=== PATIENT | female | born 1935 | race Caucasian/White ===

== ENCOUNTER 2016-08-25 09:00 | Emergency (ER) | payer MEDICARE, OTHER ==
[2016-08-25 09:08] VITALS: O2SAT 99
[2016-08-25 09:09] VITALS: BMI 18.8
[2016-08-25] MEDS ORDERED: Sodium Chloride 0.9% 500 ML IV STA (09:26)
--- NOTE | 2016-08-25 09:37 | ED PDOC ---
HPI: Abdomen Time Seen by Provider: 08/25/16 09:12 Chief Complaint (Nursing): Abdominal Pain Chief Complaint (Provider): Abdominal Pain History Per: Patient History/Exam Limitations: no limitations Onset/Duration Of Symptoms: Days (x2) Current Symptoms Are (Timing): Still Present Associated Symptoms: Nausea, Diarrhea, Other (lightheaded, and dizziness) Additional Complaint(s): Jess Rose is a 81 year old female, with a past medical history of arthritis and chronic obstructive pulmonary disorder, who presents to the emergency department complaining of lower abdominal pain associated with non-bloody diarrhea, nausea, dizziness and light headedness onset for 2 days. She denies any headache, shortness of breath, chest pain, arm pains, numbness, tingling, back pain, urinary symptom or eating new foods. Patient did not take any medications prior to arrival and reports experiencing similar symptoms in the past. PMD: Rudi Gusman Past Medical History Reviewed: Historical Data, Nursing Documentation, Vital Signs Vital Signs: Last Vital Signs Temp 97.7 F 08/25/16 09:07 Pulse 77 08/25/16 09:07 Resp 16 08/25/16 09:07 BP 115/70 08/25/16 09:07 Pulse Ox 99 08/25/16 12:28 - Medical History PMH: Arthritis, Asthma, COPD Denies: Chronic Kidney Disease - Family History Family History: States: Unknown Family Hx - Social History Current smoker - smoking cessation education provided: No Alcohol: None Drugs: Denies - Home Medications Home Medications: Ambulatory Orders Medication Instructions Recorded Levothyroxine Sodium 0.075 mg PO DAILY 11/09/14 [Levothyroxine] Meclizine Hydrochloride [Meclizine] 12.5 mg PO BID 11/09/14 Montelukast [Singulair] 10 mg PO DAILY 11/09/14 Ciprofloxacin HCl [Cipro] 500 mg PO BID #14 tab 11/10/14 Metronidazole [Flagyl] 500 mg PO BID #14 tab 11/10/14 Ondansetron ODT [Zofran ODT] 4 mg PO Q8 PRN #12 odt 11/10/14 Oxycodone HCl/Acetaminophen 1 tab PO Q6 PRN #15 tab 11/10/14 [Percocet 325 mg-5 mg] Dicyclomine [Dicyclomine HCl] 10 mg PO DAILY PRN 5 Days 08/25/16 Nitrofurantoin Macrocrystals 100 mg PO BID #10 cap 08/25/16 [Macrobid] - Allergies Allergies/Adverse Reactions: Allergies Allergy/AdvReac Type Severity Reaction Status Date / Time No Known Allergies Allergy Verified 08/25/16 09:21 Review of Systems ROS Statement: Except As Marked, All Systems Reviewed And Found Negative Cardiovascular: Negative for: Chest Pain Respiratory: Negative for: Shortness of Breath Gastrointestinal: Positive for: Nausea, Abdominal Pain, Diarrhea (non-bloody). Negative for: Vomiting Genitourinary Female: Negative for: Dysuria, Frequency, Incontinence, Hematuria Musculoskeletal: Negative for: Arm Pain, Back Pain Neurological: Positive for: Dizziness. Negative for: Weakness, Numbness, Headache Physical Exam - Reviewed Nursing Documentation Reviewed: Yes Vital Signs Reviewed: Yes - Physical Exam Appears: Positive for: Non-toxic, No Acute Distress Head Exam: Positive for: ATRAUMATIC, NORMAL INSPECTION, NORMOCEPHALIC Skin: Positive for: Normal Color, Warm, Dry Eye Exam: Positive for: EOMI, Normal appearance, PERRL ENT: Positive for: Normal ENT Inspection Neck: Positive for: Normal, Painless ROM, Supple Cardiovascular/Chest: Positive for: Regular Rate, Rhythm Respiratory: Positive for: CNT, Normal Breath Sounds Gastrointestinal/Abdominal: Positive for: Bowel Sounds, Soft, Tenderness (mild tenderness in lower abdomen). Negative for: Normal Exam Back: Positive for: Normal Inspection. Negative for: L CVA Tenderness, R CVA Tenderness Extremity: Positive for: Normal ROM. 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 Negative for: Motor/Sensory Deficits, Facial Droop - Laboratory Results Result Diagrams: 08/25/16 10:01 08/25/16 10:01 Interpretation Of Abn Labs: 9.8 hg similar to old Urine dip results: Positive for: Leukocyte Esterase (trace) - ECG ECG: Positive for: Interpreted By Me, Viewed By Me ECG Rhythm: Positive for: Normal QRS, Normal ST Segment, Sinus Rhythm O2 Sat by Pulse Oximetry: 99 (RA) Pulse Ox Interpretation: Normal - Progress ED Course And Treament: 1238: Stable. AAOx3. Pain free. Tolerated PO. FU with pcp. Medical Decision Making Medical Decision Making: Initial Impression: Medical Evaluation Initial Plan: --EKG --Comp Metabolic Panel --Troponin I --Urine Dip --Labs --Antivert 25mg PO --NS IV 500 ml at 250mls/hr --Zofran Inj IV 4mg once --Reevaluation Scribe Attestation: Documented by Miguel Hernández, acting as a scribe for Rock Toledo MD. Provider Scribe Attestation: All medical record entries made by the Scribe were at my direction and personally dictated by me. I have reviewed the chart and agree that the record accurately reflects my personal performance of the history, physical exam, medical decision making, and the department course for this patient. I have also personally directed, reviewed, and agree with the discharge instructions and disposition. Disposition - Clinical Impression Clinical Impression: Dizziness, UTI (urinary tract infection), Diarrhea - Patient ED Disposition Is Patient to be Admitted: No Counseled Patient/Family Regarding: Studies Performed, Diagnosis, Need For Followup, Rx Given - Disposition Referrals: [facility] [Outside] - 08/26/16 Disposition: Routine/Home Disposition Time: 12:43 Condition: STABLE Additional Instructions: Return if not better in 3 days. Prescriptions: Dicyclomine [Dicyclomine HCl] 10 mg PO DAILY PRN 5 Days PRN Reason: Diarrhea Nitrofurantoin Macrocrystals [Macrobid] 100 mg PO BID #10 cap Instructions: Dizziness (ED), Urinary Tract Infection in Women (ED), Acute Diarrhea (ED)
[2016-08-25 10:06] LABS: BASO % 0.5 % (0.0-2.0); EOS # 0.2 K/uL (0.0-0.7); EOS % 3.5 % (0.0-4.0); HEMOGLOBIN 9.8 g/dL (12.0-16.0); LYMPH # 1.8 K/uL (1.0-4.3); LYMPH % 36.2 % (20.0-40.0); MEAN CELL VOLUME 93.7 fl (81.0-99.0); MEAN CORPUSCULAR HGB CONC 33.1 g/dL (33.0-37.0); MEAN PLATELET VOLUME 7.1 fl (7.2-11.7); MONO # 0.4 K/uL (0.0-0.8); MONO % 7.7 % (0.0-10.0); NEUT # 2.6 K/uL (1.8-7.0); NEUT % 52.1 % (50.0-75.0); NRBC % 0.2 % (0.0-0.0); RBC 3.17 Mil/uL (3.80-5.20); RED CELL DISTRIBUTION WIDTH 16.5 % (11.5-14.5)
[2016-08-25 10:45] LABS: ALB/GLOB RATIO 1.3 (1.0-2.1); ALBUMIN 4.3 g/dL (3.5-5.0); ALT/SGPT 42 U/L (9-52); AST/SGOT 34 U/L (14-36); BLOOD UREA NITROGEN 14 mg/dl (7-17); CALCIUM 9.3 mg/dL (8.4-10.2); GFR AFRICAN-AMERICAN > 60; GFR NON-AFRICAN AMERICAN > 60
[2016-08-25 11:03] LABS: SQUAMOUS EPITHIAL 5 /hpf (0-5); URINE BILIRUBIN NEGATIVE (NEGATIVE); URINE BLOOD NEGATIVE (NEGATIVE); URINE CLARITY SLIGHTY-CLOUDY (Clear); URINE COLOR YELLOW (YELLOW); URINE GLUCOSE (UA) NEG (Normal); URINE LEUKOCYTE ESTERASE TRACE Leu/uL (Negative); URINE NITRATE NEGATIVE (NEGATIVE); URINE PROTEIN NEGATIVE (NEGATIVE); URINE UROBILINOGEN 0.2-1.0 mg/dL (0.2-1.0)
[2016-08-25 13:20] VITALS: BP 117/69; PULSE 88; RESP 18; TEMP 98.9
--- NOTE | 2016-08-25 15:08 | CARD ---
APPROVED REPORT EKG Measurement Heart [id number] [id number] <Conclusion> Normal sinus rhythm Normal ECG
== END 2016-08-25 13:20 | disposition home or self-care (01) ==
LOC: H.ER 09:00
DX: N39.0 Urinary tract infection, site not specified (principal); J44.9 Chronic obstructive pulmonary disease, unspecified
CPT/HCPCS: 80053; 81003; 84484; 85025; 87086; 93005; 96361; 96374; 96375; 99285; J1885; J2405; J7040

== ENCOUNTER 2016-08-27 08:19 | Observation (INO) | payer MEDICARE, OTHER ==
--- NOTE | 2016-08-27 09:05 | ED PDOC ---
HPI: Abdomen Time Seen by Provider: 08/27/16 08:54 Chief Complaint (Nursing): Abdominal Pain Chief Complaint (Provider): Abdominal Pain History Per: Patient History/Exam Limitations: no limitations Onset/Duration Of Symptoms: Days (x3) Current Symptoms Are (Timing): Still Present Additional Complaint(s): Jess Rose is a 81 year old female with a history of asthma and diverticulitis that presents to the ED with a chief complaint of lower abdominal pain with associated diarrhea that she has been experiencing for the past three days. Patient was seen in the ED on 08/25 and was diagnosed with a UTI and given Rx for Macrobid. Patient has had no improvement in symptoms and continues to have diarrhea, but denies any vomiting, fever, or bloody stool. Past Medical History Reviewed: Historical Data, Nursing Documentation, Vital Signs Vital Signs: Last Vital Signs Temp 97 F L 08/27/16 08:40 Pulse 77 08/27/16 08:40 Resp 18 08/27/16 08:40 BP 106/70 08/27/16 08:40 Pulse Ox 97 08/27/16 11:52 - Medical History PMH: Arthritis, Asthma, COPD, Diverticulitis Denies: Chronic Kidney Disease - Family History Family History: States: Unknown Family Hx - Social History Current smoker - smoking cessation education provided: No Alcohol: None Drugs: Denies - Home Medications Home Medications: Ambulatory Orders Medication Instructions Recorded Levothyroxine Sodium 0.075 mg PO DAILY 11/09/14 [Levothyroxine] Meclizine Hydrochloride [Meclizine] 12.5 mg PO BID 11/09/14 Montelukast [Singulair] 10 mg PO DAILY 11/09/14 Ciprofloxacin HCl [Cipro] 500 mg PO BID #14 tab 11/10/14 Metronidazole [Flagyl] 500 mg PO BID #14 tab 11/10/14 Ondansetron ODT [Zofran ODT] 4 mg PO Q8 PRN #12 odt 11/10/14 Oxycodone HCl/Acetaminophen 1 tab PO Q6 PRN #15 tab 11/10/14 [Percocet 325 mg-5 mg] Dicyclomine [Dicyclomine HCl] 10 mg PO DAILY PRN 5 Days 08/25/16 Nitrofurantoin Macrocrystals 100 mg PO BID #10 cap 08/25/16 [Macrobid] - Allergies Allergies/Adverse Reactions: Allergies Allergy/AdvReac Type Severity Reaction Status Date / Time No Known Allergies Allergy Verified 08/27/16 08:40 Review of Systems Constitutional: Negative for: Fever Gastrointestinal: Positive for: Vomiting, Abdominal Pain (lower abdominal pain bilaterally). 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 Patient states hx of rash x10 years.) Cardiovascular/Chest: Positive for: Regular Rate, Rhythm. Negative for: Murmur Respiratory: Positive for: Normal Breath Sounds. Negative for: Wheezing Gastrointestinal/Abdominal: Positive for: Soft, Tenderness (TTP lower abdomen bilaterally. ). Negative for: Normal Exam Back: Positive for: Normal Inspection. Negative for: L CVA Tenderness, R CVA Tenderness Extremity: Positive for: Normal ROM. Negative for: Tenderness, Swelling Neurologic/Psych: Positive for: Alert, Oriented. Negative for: Motor/Sensory Deficits - Laboratory Results Result Diagrams: 08/27/16 09:00 08/27/16 09:00 - ECG O2 Sat by Pulse Oximetry: 97 (RA) Pulse Ox Interpretation: Normal Medical Decision Making Medical Decision Making: Impression: Abdominal Pain Plan: * CT A/P with IV Contrast * CMP * CBC * Urine Dip * Reevaluation 11:30 CT A/P with IV Contrast FINDINGS: Lung bases: There is dependent atelectasis in the lung bases. Liver/biliary: There is mild hepatomegaly and diffuse low-attenuation in the liver without focal lesion. There is no biliary ductal dilatation. There are small gallstones. Pancreas: Normal. Spleen:There is redemonstration of moderate splenomegaly. The spleen measures 20 cm in craniocaudad dimension. Inhomogeneous enhancement in the spleen is likely related to arterial phase of scanning. Adrenal glands: Normal. Kidneys/ureters/bladder: The kidneys are normal in appearance without hydronephrosis, stone or mass. The visualized opacified ureters are normal without dilatation or filling defect. The left kidney is displaced anteriorly and superiorly due to mass effect from enlarged spleen. The urinary bladder is normal. Gastrointestinal/mesentery: There are diverticula arising from the 2nd and 3rd portions of the duodenum. The small bowel loops are normal in caliber. There is fecalization in the distal small bowel contents. There is moderate amount of stool in the colon. There is mild sigmoid diverticulosis. There is apparent mild mural thickening in the proximal sigmoid colon with pericolonic inflammatory changes. No evidence of micro perforation or abscess. Retroperitoneum/lymph nodes: No abdominal aortic aneurysm or abdominal or pelvic lymphadenopathy. Pelvis: The uterus is surgically absent. Musculoskeletal/abdominal wall: There is multilevel degenerative disc disease in the lower lumbar spine. Other: No free fluid or free air. IMPRESSION: 1. Findings are most compatible with segmental acute diverticulitis involving the proximal sigmoid colon. No evidence of micro perforation or abscess. Follow-up after medical management is recommended to ensure complete resolution and exclude underlying mass. 2. Constipation and fecalization in the distal small bowel contents related to chronic stasis. 3. Persistent moderate splenomegaly. 4. Mild hepatomegaly and hepatic steatosis. 5. Cholelithiasis. Scribe Attestation: Documented by Martha Selby, acting as a scribe for Kevin Leon MD. Provider Scribe Attestation: All medical record entries made by the Scribe were at my direction and personally dictated by me. I have reviewed the chart and agree that the record accurately reflects my personal performance of the history, physical exam, medical decision making, and the department course for this patient. I have also personally directed, reviewed, and agree with the discharge instructions and disposition. Disposition - Clinical Impression Clinical Impression: Diverticulitis - Patient ED Disposition Is Patient to be Admitted: Yes - Disposition Disposition Time: 12:18 Condition: FAIR - Pt Status Changed To: Hospital Disposition Of: Observation - POA Present On Arrival: None
[2016-08-27 09:28] LABS: BASO % 0.4 % (0.0-2.0); EOS # 0.1 K/uL (0.0-0.7); EOS % 2.2 % (0.0-4.0); HEMOGLOBIN 9.4 g/dL (12.0-16.0); LYMPH # 1.6 K/uL (1.0-4.3); LYMPH % 34.3 % (20.0-40.0); MEAN CELL VOLUME 93.4 fl (81.0-99.0); MEAN CORPUSCULAR HEMOGLOBIN 30.7 pg (27.0-31.0); MEAN CORPUSCULAR HGB CONC 32.8 g/dL (33.0-37.0); MEAN PLATELET VOLUME 6.8 fl (7.2-11.7); MONO # 0.3 K/uL (0.0-0.8); MONO % 6.2 % (0.0-10.0); NEUT # 2.7 K/uL (1.8-7.0); NEUT % 56.9 % (50.0-75.0); NRBC % 0.2 % (0.0-0.0); RBC 3.08 Mil/uL (3.80-5.20); RED CELL DISTRIBUTION WIDTH 16.4 % (11.5-14.5); WHITE BLOOD COUNT 4.8 K/uL (4.8-10.8)
[2016-08-27 09:42] LABS: ALB/GLOB RATIO 1.2 (1.0-2.1); ALBUMIN 4.3 g/dL (3.5-5.0); ALT/SGPT 38 U/L (9-52); AST/SGOT 36 U/L (14-36); BLOOD UREA NITROGEN 16 mg/dl (7-17); CALCIUM 9.2 mg/dL (8.4-10.2); GFR AFRICAN-AMERICAN > 60; GFR NON-AFRICAN AMERICAN > 60
[2016-08-27] MEDS ORDERED: Sodium Chloride 0.9% 50 ML IV ONE (10:07)
[2016-08-27] MEDS ORDERED: Iodixanol 320 MG/ML 100 ML BOTTLE IV ONE (10:09)
--- NOTE | 2016-08-27 11:26 | CT ---
PROCEDURE: CT ABDOMEN AND PELVIS INDICATION: Abd pain, h/o diverticulitis TECHNIQUE: This CT exam was performed using one or more of the following dose reduction techniques: Automated exposure control, adjustment of the mA and/or kV according to patient size, and/or use of iterative reconstruction technique CT scan of the abdomen and pelvis was performed after intravenous administration of contrast. Oral contrast was not administered. Coronal and sagittal reformatted images were obtained. Contrast dose: 95 mL Visipaque 300 Radiation dose: Total exam DLP = 628.49 mGy-cm. COMPARISON: CT abdomen and pelvis from 11/09/2014 FINDINGS: Lung bases: There is dependent atelectasis in the lung bases. Liver/biliary: There is mild hepatomegaly and diffuse low-attenuation in the liver without focal lesion. There is no biliary ductal dilatation. There are small gallstones. Pancreas: Normal. Spleen:There is redemonstration of moderate splenomegaly. The spleen measures 20 cm in craniocaudad dimension. Inhomogeneous enhancement in the spleen is likely related to arterial phase of scanning. Adrenal glands: Normal. Kidneys/ureters/bladder: The kidneys are normal in appearance without hydronephrosis, stone or mass. The visualized opacified ureters are normal without dilatation or filling defect. The left kidney is displaced anteriorly and superiorly due to mass effect from enlarged spleen. The urinary bladder is normal. Gastrointestinal/mesentery: There are diverticula arising from the 2nd and 3rd portions of the duodenum. The small bowel loops are normal in caliber. There is fecalization in the distal small bowel contents. There is moderate amount of stool in the colon. There is mild sigmoid diverticulosis. There is apparent mild mural thickening in the proximal sigmoid colon with pericolonic inflammatory changes. No evidence of micro perforation or abscess. Retroperitoneum/lymph nodes: No abdominal aortic aneurysm or abdominal or pelvic lymphadenopathy. Pelvis: The uterus is surgically absent. Musculoskeletal/abdominal wall: There is multilevel degenerative disc disease in the lower lumbar spine. Other: No free fluid or free air. IMPRESSION: 1. Findings are most compatible with segmental acute diverticulitis involving the proximal sigmoid colon. No evidence of micro perforation or abscess. Follow-up after medical management is recommended to ensure complete resolution and exclude underlying mass. 2. Constipation and fecalization in the distal small bowel contents related to chronic stasis. 3. Persistent moderate splenomegaly. 4. Mild hepatomegaly and hepatic steatosis. 5. Cholelithiasis.
[2016-08-27] MEDS ORDERED: Ciprofloxacin 400mg/200ml D5W 400 MG/200 ML BAG IVPB STA (12:17)
[2016-08-27] MEDS ORDERED: metroNIDAZOLE 500mg/100ml NS 1,000 MG in Premixed IV 1 EA IVPB SCH (12:30)
[2016-08-27] MEDS ORDERED: Ciprofloxacin 400mg/200ml D5W 400 MG/200 ML BAG IVPB ONE (12:37)
[2016-08-27 12:59] LABS: VENOUS BLOOD GAS BASE EXCESS 3.5 mmol/L (0.0-2.0); VENOUS BLOOD GAS PCO2 40 mmHg (40-60); VENOUS BLOOD GAS PO2 52 mm/Hg (30-55); VENOUS BLOOD PH 7.45 (7.32-7.43)
--- NOTE | 2016-08-27 13:01 | CP.PCM.HP ---
History of Present Illness - History of Present Illness History of Present Illness: 81 y/o female with a PMHx of hypothyroidism presents with a 3 day hx of worsening lower abdominal pain. Pt was seen in ED earlier this week and given a course of Macrobid without improvement. Pain was originally located suprapubically and in the LLQ but has now become more diffuse. Pain is 8/10, intermittent, without radiation, alleviated with rest, and exacerbated with movement or anything at increases intraabdominal pressure. No other associated symptoms. Pt reports regular BM this morning and tolerated PO intake of breakfast w/o diffculty. No other complaints. Denies fever/chills, headaches, changes in vision, CP/SOB/Palpitations, change in appetite, weight loss, N/V/D/C , melena, hematochezia, urinary symptoms, numbness/tingling. PMD: Rudi Avila PMHx: Hypothyroidism, carpal tunnel, arthritis Meds: as per med rec PsurgHx: no hx of abdominal surgery, several joint procedures (knee, wrist,) w/ o complication ALL: NKDA Social: lives with family, denies ETOH, tobacco, drug abuse Familyhx: noncontributatory ED COURSE: Vitals on Presentation: 97.0, HR 71, BP 109/73, RR 18, POX 98% on RA Labs CBC: 4.8>9.4/28.7<103 CMP: WNL Imaging: Abd/pelvic CT w/contrast: segmental acute diverticulitis involving the sigmoid colon, no micorperf/abscess formation, moderate splenomegaly, mild hepatomegaly with steatosis, cholelithiasis case discussed with Dr. Monaco Present on Admission - Present on Admission Any Indicators Present on Admission: No Review of Systems - Review of Systems All systems: reviewed and no additional remarkable complaints except - Constitutional Constitutional: As Per HPI Past Patient History - Past Medical History & Family History Past Medical History?: Yes Past Family History: Reviewed and not pertinent - Past Social History Smoking Status: Never Smoked Alcohol: None Drugs: Denies Home Situation {Lives}: With Family Domestic Violence: Negative - CARDIAC Hx Cardiac Disorders: No - PULMONARY Hx Asthma: Yes Hx Chronic Obstructive Pulmonary Disease (COPD): Yes - NEUROLOGICAL Hx Dizziness: Yes - HEENT Hx HEENT Problems: No - RENAL Hx Chronic Kidney Disease: No - ENDOCRINE/METABOLIC Hx Endocrine Disorders: No - HEMATOLOGICAL/ONCOLOGICAL Hx Blood Disorders: No - INTEGUMENTARY Hx Dermatological Problems: No - MUSCULOSKELETAL/RHEUMATOLOGICAL Hx Arthritis: Yes - GASTROINTESTINAL Hx Diverticulitis: Yes - GENITOURINARY/GYNECOLOGICAL Hx Genitourinary Disorders: No - PSYCHIATRIC Hx Psychophysiologic Disorder: No Hx Substance Use: No - SURGICAL HISTORY Other/Comment: Knee surgery, BUE surgeries - ANESTHESIA Hx Anesthesia: Yes Hx Anesthesia Reactions: No Meds Allergies/Adverse Reactions: Allergies Allergy/AdvReac Type Severity Reaction Status Date / Time No Known Allergies Allergy Verified 08/27/16 08:40 Physical Exam - Constitutional Appears: Non-toxic, No Acute Distress - Head Exam Head Exam: ATRAUMATIC, NORMOCEPHALIC - Eye Exam Eye Exam: EOMI. absent: Conjunctival injection, Scleral icterus Pupil Exam: PERRL - ENT Exam ENT Exam: Mucous Membranes Moist - Neck Exam Neck exam: Positive for: Full Rom. Negative for: Tenderness, Thyromegaly - Respiratory Exam Respiratory Exam: Clear to Auscultation Bilateral, NORMAL BREATHING PATTERN. absent: Accessory Muscle Use, Rales, Rhonchi, Wheezes, Respiratory Distress - Cardiovascular Exam Cardiovascular Exam: REGULAR RHYTHM, RRR, +S1, +S2. absent: Tachycardia, Diastolic murmur, Gallop, JVD, Rubs, Systolic Murmur - GI/Abdominal Exam GI & Abdominal Exam: Guarding, Normal Bowel Sounds, Soft, Tenderness. absent: Distended, Firm, Rebound, Rigid Additional comments: voluntary guarding suprapubically in and LLQ - Extremities Exam Extremities exam: Positive for: normal inspection, pedal pulses present. Negative for: calf tenderness, pedal edema, tenderness - Back Exam Back exam: NORMAL INSPECTION. absent: CVA tenderness (L), CVA tenderness (R) - Neurological Exam Neurological exam: Alert, CN II-XII Intact, Normal Gait, Oriented x3, Reflexes Normal - Psychiatric Exam Psychiatric exam: Normal Affect, Normal Mood - Skin Skin Exam: Dry, Intact, Normal Color Results - Vital Signs Recent Vital Signs: Last Vital Signs Temp 97 F L 08/27/16 08:40 Pulse 77 08/27/16 08:40 Resp 18 08/27/16 08:40 BP 106/70 08/27/16 08:40 Pulse Ox 97 08/27/16 12:18 - Labs Result Diagrams: 08/27/16 09:00 08/27/16 09:00 Labs: Laboratory Results - last 24 hr 08/27/16 12:50 pO2 52 VBG pH 7.45 H VBG pCO2 40 VBG HCO3 27.4 VBG Total CO2 29.0 H VBG O2 Sat (Calc) 90.8 H VBG Base Excess 3.5 H VBG Potassium 4.4 Sodium 136.0 Chloride 106.0 Glucose 87 Lactate 0.8 FiO2 21.0 Venous Blood Potassium 4.4 Assessment & Plan (1) Acute diverticulitis Assessment and Plan: afebrile labs no elevated WBC NPO IV Ciproflox 400mg QD IV Flagyl 1gm QD IV Toradol 15mg PRN PAIN D5LR @ 100ms/hr mx fluid f/u AM labs, monitor vitals Status: Acute Priority: Medium (2) DVT prophylaxis Assessment and Plan: ambulation with caution SCDs PRN. Status: Acute Priority: Medium
[2016-08-27] MEDS ORDERED: metroNIDAZOLE 500mg/100ml NS 100 ML IVPB ONE (13:43)
[2016-08-27] MEDS ORDERED: metroNIDAZOLE 500mg/100ml NS 1,000 MG in Premixed IV 1 EA IVPB STA (14:05)
[2016-08-27] MEDS: Dextrose 5%/Lactated Ringer's 1,000 ML IV SCH ×2 (14:42→23:52)
[2016-08-28] MEDS: metroNIDAZOLE 500mg/100ml NS 100 ML IVPB SCH ×2 (01:49→09:16)
[2016-08-28] MEDS ORDERED: Ciprofloxacin 400mg/200ml D5W 400 MG/200 ML BAG IVPB SCH (02:00)
[2016-08-28] MEDS ORDERED: Ciprofloxacin 200mg/100ml D5W 100 ML IVPB SCH (02:00)
[2016-08-28] MEDS: Ciprofloxacin 400mg/200ml D5W 400 MG/200 ML BAG IVPB SCH ×2 (02:14→15:33)
[2016-08-28] MEDS ORDERED: Levothyroxine 75 MCG TAB PO SCH (06:30)
[2016-08-28 07:22] LABS: BASO % 0.4 % (0.0-2.0); EOS # 0.1 K/uL (0.0-0.7); HEMOGLOBIN 8.3 g/dL (12.0-16.0); LYMPH # 1.4 K/uL (1.0-4.3); LYMPH % 39.1 % (20.0-40.0); MEAN CELL VOLUME 93.5 fl (81.0-99.0); MEAN CORPUSCULAR HEMOGLOBIN 30.6 pg (27.0-31.0); MEAN CORPUSCULAR HGB CONC 32.7 g/dL (33.0-37.0); MEAN PLATELET VOLUME 7.5 fl (7.2-11.7); MONO # 0.3 K/uL (0.0-0.8); MONO % 7.8 % (0.0-10.0); NEUT # 1.7 K/uL (1.8-7.0); NEUT % 48.7 % (50.0-75.0); NRBC % 0.1 % (0.0-0.0); RBC 2.73 Mil/uL (3.80-5.20); RED CELL DISTRIBUTION WIDTH 16.6 % (11.5-14.5); WHITE BLOOD COUNT 3.5 K/uL (4.8-10.8)
[2016-08-28 07:38] LABS: ALB/GLOB RATIO 1.3 (1.0-2.1); ALBUMIN 3.7 g/dL (3.5-5.0); ALT/SGPT 26 U/L (9-52); AST/SGOT 31 U/L (14-36); BLOOD UREA NITROGEN 15 mg/dl (7-17); CALCIUM 9.1 mg/dL (8.4-10.2); GFR AFRICAN-AMERICAN > 60; GFR NON-AFRICAN AMERICAN > 60
[2016-08-28 07:45] VITALS: BP 99/56; PULSE 63; RESP 18; TEMP 97.8; O2SAT 97
[2016-08-28 10:40] VITALS: BMI 22.3
[2016-08-28] MEDS ORDERED: Dextrose 5%/Lactated Ringer's 1,000 ML IV SCH (11:00)
[2016-08-28 12:12] LABS: IRON 64 ug/dL (37-170)
[2016-08-28 12:26] LABS: % IRON SATURATION 20 % (20-55); TOTAL IRON BINDING CAPACITY 326 ug/dL (250-450)
--- NOTE | 2016-08-28 14:01 | CP.PCM.DIS ---
Provider - Provider Date of Admission: 08/27/16 12:17 Attending physician: Ranjeet Monaco MD Time Spent in preparation of Discharge (in minutes): 35 Diagnosis - Discharge Diagnosis (1) Acute diverticulitis Status: Acute Priority: Medium Hospital Course - Lab Results Lab Results: Micro Results 08/27/16 12:30 Blood Blood Culture - Preliminary NO GROWTH AFTER 24 HOURS Most Recent Lab Values WBC 3.5 K/uL (4.8-10.8) L 08/28/16 05:45 RBC 2.73 Mil/uL (3.80-5.20) L 08/28/16 05:45 Hgb 8.3 g/dL (12.0-16.0) L 08/28/16 05:45 Hct 25.5 % (34.0-47.0) L 08/28/16 05:45 MCV 93.5 fl (81.0-99.0) 08/28/16 05:45 MCH 30.6 pg (27.0-31.0) 08/28/16 05:45 MCHC 32.7 g/dL (33.0-37.0) L 08/28/16 05:45 RDW 16.6 % (11.5-14.5) H 08/28/16 05:45 Plt Count 99 K/uL (130-400) L 08/28/16 05:45 MPV 7.5 fl (7.2-11.7) 08/28/16 05:45 Neut % (Auto) 48.7 % (50.0-75.0) L 08/28/16 05:45 Lymph % (Auto) 39.1 % (20.0-40.0) 08/28/16 05:45 [place] % (Auto) 7.8 % (0.0-10.0) 08/28/16 05:45 Eos % (Auto) 4.0 % (0.0-4.0) 08/28/16 05:45 Baso % (Auto) 0.4 % (0.0-2.0) 08/28/16 05:45 Neut # 1.7 K/uL (1.8-7.0) L 08/28/16 05:45 Lymph # 1.4 K/uL (1.0-4.3) 08/28/16 05:45 [place] # 0.3 K/uL (0.0-0.8) 08/28/16 05:45 Eos # 0.1 K/uL (0.0-0.7) 08/28/16 05:45 Baso # 0.0 K/uL (0.0-0.2) 08/28/16 05:45 ESR 92 mm/hr (0-30) H 08/28/16 05:45 pO2 52 mm/Hg (30-55) 08/27/16 12:50 VBG pH 7.45 (7.32-7.43) H 08/27/16 12:50 VBG pCO2 40 mmHg (40-60) 08/27/16 12:50 VBG HCO3 27.4 mmol/L 08/27/16 12:50 VBG Total CO2 29.0 mmol/L (22-28) H 08/27/16 12:50 VBG O2 Sat (Calc) 90.8 % (40-65) H 08/27/16 12:50 VBG Base Excess 3.5 mmol/L (0.0-2.0) H 08/27/16 12:50 VBG Potassium 4.4 mmol/L (3.6-5.2) 08/27/16 12:50 Sodium 136.0 mmol/L (132-148) 08/27/16 12:50 Chloride 106.0 mmol/L (98-107) 08/27/16 12:50 Glucose 87 mg/dL (65-105) 08/27/16 12:50 Lactate 0.8 mmol/L (0.7-2.1) 08/27/16 12:50 FiO2 21.0 % 08/27/16 12:50 Sodium 141 mmol/l (132-148) 08/28/16 05:45 Potassium 4.3 MMOL/L (3.6-5.0) 08/28/16 05:45 Chloride 107 mmol/L (98-107) 08/28/16 05:45 Carbon Dioxide 25 mmol/L (22-30) 08/28/16 05:45 Anion Gap 14 (10-20) 08/28/16 05:45 BUN 15 mg/dl (7-17) 08/28/16 05:45 Creatinine 0.9 mg/dL (0.7-1.2) 08/28/16 05:45 Est GFR ( Amer) > 60 08/28/16 05:45 Est GFR (Non-Af Amer) > 60 08/28/16 05:45 Random Glucose 103 mg/dL (65-105) 08/28/16 05:45 Calcium 9.1 mg/dL (8.4-10.2) 08/28/16 05:45 Iron 64 ug/dL (37-170) 08/28/16 11:27 TIBC 326 ug/dL (250-450) 08/28/16 11:27 % Saturation 20 % (20-55) 08/28/16 11:27 Ferritin 120.0 ng/mL 08/28/16 11:27 Total Bilirubin 1.2 mg/dl (0.2-1.3) 08/28/16 05:45 AST 31 U/L (14-36) 08/28/16 05:45 ALT 26 U/L (9-52) 08/28/16 05:45 Alkaline Phosphatase 66 U/L (38-126) 08/28/16 05:45 Total Protein 6.5 G/DL (6.3-8.2) 08/28/16 05:45 Albumin 3.7 g/dL (3.5-5.0) 08/28/16 05:45 Globulin 2.8 gm/dL (2.2-3.9) 08/28/16 05:45 Albumin/Globulin Ratio 1.3 (1.0-2.1) 08/28/16 05:45 Vitamin B12 414 pg/mL (239-931) 08/28/16 11:27 Venous Blood Potassium 4.4 mmol/L (3.6-5.2) 08/27/16 12:50 - Hospital Course Hospital Course: 81 y/o female with a PMHx of hypothyroidism was admitted for observation due to acute diverticulitis. Pt was made NPO, given IV fluids and started on IV Ciprofloxacin and IV Metronidazole. Pt remained afebrile. Overnight pain abdominal pain was tolerated and pt did not require pain medications. Next morning pt reported improvement in abdominal bloating/pain as well as increased appetite. Pt was advanced to CLD then softs and tolerated w/o vomiting. No episodes of diarrhea during her stay. After an uneventful hospital stay, the pt was discharged in stable condition. F/U with PMD Dr. Avila next week ABX ON D/C Ciprofloxacin 500mg QD Metronidazole 500mg Q8H Discharge Exam - Head Exam Head Exam: ATRAUMATIC, NORMOCEPHALIC - Eye Exam Eye Exam: EOMI Pupil Exam: PERRL - ENT Exam ENT Exam: Mucous Membranes Moist - Neck Exam Neck exam: Full Rom - Respiratory Exam Respiratory Exam: Clear to PA & Lateral, NORMAL BREATHING PATTERN, UNREMARKABLE - Cardiovascular Exam Cardiovascular Exam: REGULAR RHYTHM, RRR, +S1, +S2. absent: JVD - GI/Abdominal Exam GI & Abdominal Exam: Normal Bowel Sounds, Soft, Tenderness. absent: Distended, Firm, Guarding, Organomegaly, Rebound, Rigid Additional comments: mild tenderness LLQ and suprapubically, improved since admission - Extremities Exam Extremities exam: normal capillary refill, normal inspection, pedal pulses present - Back Exam Back exam: absent: CVA tenderness (L), CVA tenderness (R) - Neurological Exam Neurological exam: Alert, CN II-XII Intact, Oriented x3, Reflexes Normal - Psychiatric Exam Psychiatric exam: Normal Affect, Normal Mood - Skin Skin Exam: Dry, Intact, Normal Color, Warm Discharge Plan - Discharge Medications Prescriptions: Ciprofloxacin HCl [Cipro] 500 mg PO Q1 #20 tablet Lactobacillus Acidophilus [Bacid Acidophilus] 1 cap PO DAILY #20 cap Metronidazole [Flagyl] 500 mg PO Q8 #30 tablet - Follow Up Plan Condition: FAIR Disposition: HOME/ ROUTINE Additional Instructions: patient cleared for discharge to Home today by Rx for meds sent to [facility] pharmacy on [address] f/u with in 1 week Referrals: Rudi Woodson MD [Staff Provider] -
[2016-08-28 18:12] LABS: FOLATE 13.2 ng/mL
== END 2016-08-28 16:02 | disposition home or self-care (01) ==
LOC: H.ER 08:19 → H.ERHOLD 12:17 → H.MEDSURG1 20:59
PROVIDERS: ADMIT Family Medicine; ATTEND Family Medicine
DX: K57.92 Diverticulitis of intestine, part unspecified, without perforation or abscess without bleeding (principal); E03.9 Hypothyroidism, unspecified; J44.9 Chronic obstructive pulmonary disease, unspecified; J45.909 Unspecified asthma, uncomplicated; M19.90 Unspecified osteoarthritis, unspecified site; N39.0 Urinary tract infection, site not specified
CPT/HCPCS: 36415; 74177; 80053; 82607; 82728; 82746; 82803; 83540; 83550; 85025; 85651; 87040; 96365; 96374; 99285; C9113; G0378; J0744; J1885; J7120; Q9967

== ENCOUNTER 2017-07-01 15:13 | Inpatient (IN) | payer MEDICARE, OTHER ==
[2017-07-01 15:13] VITALS: BMI 22.3
--- NOTE | 2017-07-01 15:55 | ED PDOC ---
HPI: SOB/CHF/COPD Chief Complaint (Provider): SOB History Per: Patient (82 Y/O FEMALE H/O ANEMIA HERE WITH SOB/WEAKNESS X FEW DAYS. DENIES ANY CHEST PAIN/DARK STOOLS/ABD PAIN/ VOMITING/FEVERS/CHILLS. STATES HER DAUGHTER RECENTLY FROM BREAST CANCER AND SHE IS CARING FOR 2 GRANDDAUGHTERS AGE 3 AND 6 AND FEELS THAT STRESS MAY BE MAKING SYMPTOMS WORSE.) <Christine Rosa - Last Filed: 07/01/17 19:51> <Lauren Vásquez - Last Filed: 07/03/17 19:07> Time Seen by Provider: 07/01/17 15:54 Chief Complaint (Nursing): Shortness Of Breath Supervising Attending Note <Christine Rosa - Last Filed: 07/01/17 19:51> - Supervising Attending Note The Documented history was done by the: Physician [employer] Export Operations Agent The documented physical exam was done by the: Physician Air Export Operations Agent, Attending Physician - Attestation: I have personally seen and examined this patient.: Yes I have fully participated in the care of the patient.: Yes I have reviewed all pertinent clinical information, including history, physical exam and plan: Yes <Lauren Vásquez - Last Filed: 07/03/17 19:07> - Notes: Notes:: Severe anemia, stable vitals and in no acute distress. [facility] Hematology concerning antibodies for crossmatch. Benadryl and solumedrol pretreat for initial transfusion. (Lauren Vásquez) Past Medical History Reviewed: Historical Data, Nursing Documentation, Vital Signs - Medical History PMH: Arthritis, Asthma, COPD, Diverticulitis, Hypothyroidism Denies: Chronic Kidney Disease - Family History Family History: States: Unknown Family Hx <Christine Rosa - Last Filed: 07/01/17 19:51> <Lauren Vásquez - Last Filed: 07/03/17 19:07> Vital Signs: Last Vital Signs Temp 98 F 07/03/17 16:00 Pulse 64 07/03/17 16:00 Resp 18 07/03/17 16:00 BP 136/65 07/03/17 16:00 Pulse Ox 98 07/03/17 16:00 - Home Medications Home Medications: Ambulatory Orders Medication Instructions Recorded Montelukast [Singulair] 10 mg PO DAILY 11/09/14 Levothyroxine [Synthroid] 75 mcg PO DAILY 08/27/16 Meloxicam [Mobic] 7.5 mg PO DAILY 08/27/16 - Allergies Allergies/Adverse Reactions: Allergies Allergy/AdvReac Type Severity Reaction Status Date / Time No Known Allergies Allergy Verified 08/27/16 08:40 Review of Systems ROS Statement: Except As Marked, All Systems Reviewed And Found Negative <Christine Rosa - Last Filed: 07/01/17 19:51> Physical Exam - Reviewed Nursing Documentation Reviewed: Yes Vital Signs Reviewed: Yes - Physical Exam Appears: Positive for: Well, Non-toxic, No Acute Distress Head Exam: Positive for: ATRAUMATIC, NORMAL INSPECTION, NORMOCEPHALIC Skin: Positive for: Normal Color, Warm, DRY Eye Exam: Positive for: EOMI, Normal appearance, PERRL ENT: Positive for: Normal ENT Inspection Neck: Positive for: Normal, Painless ROM Cardiovascular/Chest: Positive for: Regular Rate, Rhythm Respiratory: Positive for: CNT, Normal Breath Sounds Gastrointestinal/Abdominal: Positive for: Normal Exam, Soft Back: Positive for: Normal Inspection Rectal: Positive for: Other (brown stool. no melena evident. Stool guiac for occult blood sent to lab). Negative for: Black Stool Extremity: Positive for: Normal ROM Neurologic/Psych: Positive for: Alert, Oriented <Christine Rosa - Last Filed: 07/01/17 19:51> - Laboratory Results Result Diagrams: 07/01/17 16:27 07/01/17 16:27 - ECG O2 Sat by Pulse Oximetry: 99 <Christine Rosa - Last Filed: 07/01/17 19:51> - Laboratory Results Result Diagrams: 07/03/17 04:50 07/02/17 10:35 - Critical Care Total Time (In Min): 45 Documented Critical Care: Time excludes all time spent performint seperately billable procedures <Lauren Vásquez - Last Filed: 07/03/17 19:07> - Progress ED Course And Treament: ekg: nsr 96bpm; no ectopy no acute changes hgb 4.7 type and crossed 2 units 1 liter 500 ml per hour d/w Dr Kline. Anemia work up prior to transfusion Patient comfortable in ED. D/W DR. FELIZ. RECOMMENDS TRANSFUSION. (Christine Rosa) Disposition - Patient ED Disposition Is Patient to be Admitted: Yes - Disposition Disposition Time: 17:23 - Pt Status Changed To: Hospital Disposition Of: Inpatient - Admit Certification Admit to Inpatient:: After my assessment, the patient will require hospitalization for at least two midnights. This is because of the severity of symptoms shown, intensity of services needed, and/or the medical risk in this patient being treated as an outpatient. - POA Present On Arrival: None <Christine Rosa - Last Filed: 07/01/17 19:51> <Lauren Vásquez - Last Filed: 07/03/17 19:07> - Clinical Impression Clinical Impression: Symptomatic anemia - Disposition Condition: FAIR
[2017-07-01 16:34] LABS: BASO % 0.4 % (0.0-2.0); EOS # 0.1 K/uL (0.0-0.7); LYMPH # 1.6 K/uL (1.0-4.3); LYMPH % 36.5 % (20.0-40.0); MEAN CELL VOLUME 116.5 fl (81.0-99.0); MEAN CORPUSCULAR HEMOGLOBIN 36.1 pg (27.0-31.0); MEAN PLATELET VOLUME 7.2 fl (7.2-11.7); MONO # 0.2 K/uL (0.0-0.8); MONO % 5.9 % (0.0-10.0); NEUT # 2.3 K/uL (1.8-7.0); NEUT % 55.2 % (50.0-75.0); NRBC % 0.9 % (0.0-0.0); RBC 1.29 Mil/uL (3.80-5.20); RED CELL DISTRIBUTION WIDTH 22.9 % (11.5-14.5); WHITE BLOOD COUNT 4.2 K/uL (4.8-10.8)
[2017-07-01 16:42] LABS: ALB/GLOB RATIO 1.2 (1.0-2.1); ALT/SGPT 31 U/L (9-52); AST/SGOT 42 U/L (14-36); BLOOD UREA NITROGEN 26 mg/dl (7-17); CALCIUM 8.7 mg/dL (8.4-10.2); GFR AFRICAN-AMERICAN > 60; GFR NON-AFRICAN AMERICAN > 60
[2017-07-01 16:48] LABS: PROTHROMBIN TIME 11.5 Seconds (9.8-13.1)
[2017-07-01 16:49] LABS: PARTIAL THROMBOPLASTIN TIME 24.8 Seconds (25.6-37.1)
--- NOTE | 2017-07-01 16:56 | RAD ---
HISTORY: SOB COMPARISON: 05/15/2010 FINDINGS: LUNGS: No active pulmonary disease. PLEURA: No significant pleural effusion identified, no pneumothorax apparent. CARDIOVASCULAR: Normal. OSSEOUS STRUCTURES: No significant abnormalities. VISUALIZED UPPER ABDOMEN: Normal. OTHER FINDINGS: None. IMPRESSION: No active disease.
[2017-07-01 16:59] LABS: B-TYPE NATRIURETIC PEPTIDE 666 pg/ml (0-900)
[2017-07-01 17:04] LABS: HEMOGLOBIN 4.7 g/dL (12.0-16.0)
[2017-07-01] MEDS ORDERED: Sodium Chloride 0.9% 1,000 ML IV STA (17:14)
[2017-07-01 18:45] LABS: IRON 76 ug/dL (37-170)
[2017-07-01 18:55] LABS: % IRON SATURATION 21 % (20-55); TOTAL IRON BINDING CAPACITY 366 ug/dL (250-450)
[2017-07-01] MEDS ORDERED: DiphenhydrAMINE 50 mg/ml Inj IVP STA (22:02)
[2017-07-01] MEDS ORDERED: methylPREDNISolone 125 MG in Sodium Chloride 0.9% 50 ML IVPB STA (23:03)
[2017-07-02] MEDS: Levothyroxine 75 MCG TAB PO SCH (06:50)
--- NOTE | 2017-07-02 08:34 | CP.PCM.HP ---
History of Present Illness - History of Present Illness History of Present Illness: 82 yo ,f, PMhx/o Anemia, Hypothyroidism, Diverticulosis, presents c/o progressive general weakness for the last 2 weeks associated with SOB on exertion palpitation and weight loss 14 lbs. The patient recently lost her daughter to breast cancer and has been taking care of her young children. She notes to increasing stress which she feels is making her body weak. She denies chest pain,n,v,d,abd pain, rectal bleeding, vaginal bleeding. Patient seen and examined bedside with Dr Riddle. Patient reports feeling better today after the transfusion Present on Admission - Present on Admission Any Indicators Present on Admission: No History of DVT/PE: No History of Uncontrolled Diabetes: No Urinary Catheter: No Decubitus Ulcer Present: No Review of Systems - Review of Systems All systems: reviewed and no additional remarkable complaints except - Respiratory Respiratory: Dyspnea - Musculoskeletal Additional comments: fatigue, weakness Past Patient History - Past Medical History & Family History Past Medical History?: Yes - Past Social History Smoking Status: Never Smoked - CARDIAC Hx Cardiac Disorders: No - PULMONARY Hx Respiratory Disorders: Yes Hx Asthma: Yes Hx Chronic Obstructive Pulmonary Disease (COPD): Yes - NEUROLOGICAL Hx Neurological Disorder: Yes Hx Dizziness: Yes - HEENT Hx HEENT Problems: No - RENAL Hx Chronic Kidney Disease: No - ENDOCRINE/METABOLIC Hx Endocrine Disorders: Yes Hx Hypothyroidism: Yes - HEMATOLOGICAL/ONCOLOGICAL Hx Blood Disorders: Yes Hx Anemia: Yes - INTEGUMENTARY Hx Dermatological Problems: No - MUSCULOSKELETAL/RHEUMATOLOGICAL Hx Musculoskeletal Disorders: Yes Hx Arthritis: Yes Hx Falls: No - GASTROINTESTINAL Hx Gastrointestinal Disorders: Yes Hx Diverticulitis: Yes - GENITOURINARY/GYNECOLOGICAL Hx Genitourinary Disorders: Yes Hx Urinary Tract Infection: Yes - PSYCHIATRIC Hx Psychophysiologic Disorder: No Hx Substance Use: No - SURGICAL HISTORY Hx Surgeries: Yes Hx Musculoskeletal Surgery: Yes Other/Comment: Bilateral Knee surgery, BUE surgeries - ANESTHESIA Hx Anesthesia: Yes Hx Anesthesia Reactions: No Hx Malignant Hyperthermia: No Meds Allergies/Adverse Reactions: Allergies Allergy/AdvReac Type Severity Reaction Status Date / Time No Known Allergies Allergy Verified 08/27/16 08:40 Physical Exam - Constitutional Appears: No Acute Distress - Head Exam Head Exam: ATRAUMATIC, NORMOCEPHALIC - Eye Exam Eye Exam: Normal appearance - ENT Exam ENT Exam: Mucous Membranes Moist - Respiratory Exam Respiratory Exam: Clear to Auscultation Bilateral. absent: Rales, Rhonchi - Cardiovascular Exam Cardiovascular Exam: REGULAR RHYTHM, +S1, +S2 - GI/Abdominal Exam GI & Abdominal Exam: Normal Bowel Sounds, Soft. absent: Tenderness Additional comments: skin of lower abdomen with rash that blanching to touch. - Extremities Exam Extremities exam: Positive for: normal inspection. Negative for: pedal edema - Neurological Exam Neurological exam: Alert, Oriented x3 - Psychiatric Exam Psychiatric exam: Normal Affect, Normal Mood - Skin Skin Exam: Rash Additional comments: skin of lower abdomen with rash that blanching to touch. Results - Vital Signs Recent Vital Signs: Last Vital Signs Temp 97.6 F 07/02/17 07:55 Pulse 64 07/02/17 07:55 Resp 16 07/02/17 07:55 BP 107/61 07/02/17 07:55 Pulse Ox 98 07/02/17 07:55 - Labs Result Diagrams: 07/02/17 10:35 07/02/17 10:35 Labs: Laboratory Results - last 24 hr 07/01/17 07/01/17 07/01/17 15:42 16:20 16:27 WBC RBC Hgb Hct MCV MCH MCHC RDW Plt Count MPV Neut % (Auto) Lymph % (Auto) [place] % (Auto) Eos % (Auto) Baso % (Auto) Neut # (Auto) Lymph # (Auto) [place] # (Auto) Eos # (Auto) Baso # (Auto) Retic Count PT INR APTT Sodium 141 Potassium 4.6 Chloride 105 Carbon Dioxide 23 Anion Gap 18 BUN 26 H Creatinine 0.8 Est GFR ( Amer) > 60 Est GFR (Non-Af Amer) > 60 POC Glucose (mg/dL) 124 H Random Glucose 113 H Calcium 8.7 Iron TIBC % Saturation Ferritin Total Bilirubin 3.7 H AST 42 H D ALT 31 Alkaline Phosphatase 78 Troponin I < 0.0120 NT-Pro-B Natriuret Pep 666 Total Protein 7.4 Albumin 4.0 Globulin 3.4 Albumin/Globulin Ratio 1.2 Vitamin B12 TSH 3rd Generation Stool Occult Blood Blood Type O POSITIVE Blood Type Confirm Antibody Screen Positive Antibody Identification WARM AUTO ANTIBODY LIZETTE, Poly Interpret Crossmatch See Detail BBK History Checked No verified bt 07/01/17 07/01/17 07/01/17 16:27 16:27 17:21 WBC 4.2 L RBC 1.29 L Hgb 4.7 L* D Hct 15.0 L MCV 116.5 H D MCH 36.1 H MCHC 31.0 L RDW 22.9 H Plt Count 107 L MPV 7.2 Neut % (Auto) 55.2 Lymph % (Auto) 36.5 [place] % (Auto) 5.9 Eos % (Auto) 2.0 Baso % (Auto) 0.4 Neut # (Auto) 2.3 Lymph # (Auto) 1.6 [place] # (Auto) 0.2 Eos # (Auto) 0.1 Baso # (Auto) 0.0 Retic Count PT 11.5 INR 1.0 APTT 24.8 L Sodium Potassium Chloride Carbon Dioxide Anion Gap BUN Creatinine Est GFR ( Amer) Est GFR (Non-Af Amer) POC Glucose (mg/dL) Random Glucose Calcium Iron TIBC % Saturation Ferritin Total Bilirubin AST ALT Alkaline Phosphatase Troponin I NT-Pro-B Natriuret Pep Total Protein Albumin Globulin Albumin/Globulin Ratio Vitamin B12 TSH 3rd Generation Stool Occult Blood Negative Blood Type Blood Type Confirm Antibody Screen Antibody Identification LIZETTE, Poly Interpret Crossmatch BBK History Checked 07/01/17 07/01/17 07/01/17 17:50 17:50 17:50 WBC RBC Hgb Hct MCV MCH MCHC RDW Plt Count MPV Neut % (Auto) Lymph % (Auto) [place] % (Auto) Eos % (Auto) Baso % (Auto) Neut # (Auto) Lymph # (Auto) [place] # (Auto) Eos # (Auto) Baso # (Auto) Retic Count 18.9 H PT INR APTT Sodium Potassium Chloride Carbon Dioxide Anion Gap BUN Creatinine Est GFR ( Amer) Est GFR (Non-Af Amer) POC Glucose (mg/dL) Random Glucose Calcium Iron 76 TIBC 366 % Saturation 21 Ferritin 188.0 Total Bilirubin AST ALT Alkaline Phosphatase Troponin I NT-Pro-B Natriuret Pep Total Protein Albumin Globulin Albumin/Globulin Ratio Vitamin B12 311 TSH 3rd Generation Stool Occult Blood Blood Type Blood Type Confirm Antibody Screen Antibody Identification LIZETTE, Poly Interpret Crossmatch BBK History Checked 07/01/17 07/01/17 07/01/17 18:49 19:48 21:00 WBC RBC Hgb Hct MCV MCH MCHC RDW Plt Count MPV Neut % (Auto) Lymph % (Auto) [place] % (Auto) Eos % (Auto) Baso % (Auto) Neut # (Auto) Lymph # (Auto) [place] # (Auto) Eos # (Auto) Baso # (Auto) Retic Count PT INR APTT Sodium Potassium Chloride Carbon Dioxide Anion Gap BUN Creatinine Est GFR ( Amer) Est GFR (Non-Af Amer) POC Glucose (mg/dL) Random Glucose Calcium Iron TIBC % Saturation Ferritin Total Bilirubin AST ALT Alkaline Phosphatase Troponin I NT-Pro-B Natriuret Pep Total Protein Albumin Globulin Albumin/Globulin Ratio Vitamin B12 TSH 3rd Generation 4.72 H Stool Occult Blood Blood Type Blood Type Confirm O POSITIVE Antibody Screen Antibody Identification LIZETTE, Poly Interpret Positive H Crossmatch BBK History Checked Assessment & Plan - Assessment and Plan (Free Text) Plan: Assessment/Plan 1) Anemia Hemolytic -ret count, LDH high -haptoglobin low. Kirt + -Abd Us: hepatosplenomegaly -Hem-Onc consult appreciated: started in steroids 2) hypothyroidism -uncontrolled -TSH mild high -c/w levothyroxin 75 mcg 3) DVT Prophylaxis -Lovenox 40 mg sc daily
--- NOTE | 2017-07-02 08:55 | US ---
HISTORY: hemolytic anemia ? splenomegaly COMPARISON: Abdomen pelvis CT examination 08/27/2016 and limited abdomen ultrasound 11/10/2014. TECHNIQUE: Sonographic evaluation of the abdomen. FINDINGS: LIVER: Measures 20.7 cm. The increased echogenicity of the liver parenchyma is identified, suggesting diffuse fatty infiltration once again. No mass. No intrahepatic bile duct dilatation. GALLBLADDER: Cholelithiasis identified once again with any mildly distended gallbladder with mural thickening identified up to 4.2 mm. No pericholecystic fluid collection is evident and there is no sonographic Sommer's sign. Clinically correlate nevertheless for potential cholecystitis. COMMON BILE DUCT: Measures 3.9 mm. No stones. No dilatation. PANCREAS: Unremarkable as visualized. No mass. No ductal dilatation. RIGHT KIDNEY: Measures 11.5 x 5.3 x 4.5cm. Normal echogenicity. No calculus, mass, or hydronephrosis. LEFT KIDNEY: Measures 10.1 x 4.2 x 3.8cm. Normal echogenicity. No calculus, mass, or hydronephrosis. SPLEEN: The spleen is again seen nonfocal but enlarged to 20 cm. AORTA: No aneurysmal dilatation. IVC: Unremarkable. OTHER FINDINGS: None. IMPRESSION: 1. Hepatic splenomegaly is appreciated once again, without focal mass identified in either. No intrahepatic biliary dilatation. 2. Cholelithiasis with thickened gallbladder wall but no other potential acute findings. No sonographic Sommer sign. Clinically correlate nevertheless for possible cholecystitis. Mild mural thickening was seen in prior limited abdomen ultrasound 11/10/2014. 3. The remainder the examination appears unremarkable.
--- NOTE | 2017-07-02 09:40 | CP.PCM.CON ---
History of Present Illness - History of Present Illness History of Present Illness: 82 year old female with a history of hypothyroid, arthritis, presenting with progressive fatigue, found to have pancytopenia with severe anemia. The patient recently lost her daughter to breast cancer and has been taking care of her young children. She notes to increasing stress which she feels is making her body weak. She denies abnormal bleeding and bruising. She is s/p PRBC transfusion and reports to feeling better. Past medical history: hypothyroid, arthritis Past surgical history: B/L knee replacement, B/L carpal tunnel repair Family history: Daughter had breast cancer Social history: Denies tobacco, alcohol, and illicit drug use Allergies: NKA Review of systems: All remaining review of systems including HEENT, cardiovascular, respiratory, gastrointestinal, genitourinary, musculoskeletal, dermatologic, neurologic, and psychiatric are negative unless mentioned in the HPI Past Patient History - Past Medical History & Family History Past Medical History?: Yes - Past Social History Smoking Status: Never Smoked - CARDIAC Hx Cardiac Disorders: No - PULMONARY Hx Respiratory Disorders: Yes Hx Asthma: Yes Hx Chronic Obstructive Pulmonary Disease (COPD): Yes - NEUROLOGICAL Hx Neurological Disorder: Yes Hx Dizziness: Yes - HEENT Hx HEENT Problems: No - RENAL Hx Chronic Kidney Disease: No - ENDOCRINE/METABOLIC Hx Endocrine Disorders: Yes Hx Hypothyroidism: Yes - HEMATOLOGICAL/ONCOLOGICAL Hx Blood Disorders: Yes Hx Anemia: Yes - INTEGUMENTARY Hx Dermatological Problems: No - MUSCULOSKELETAL/RHEUMATOLOGICAL Hx Musculoskeletal Disorders: Yes Hx Arthritis: Yes Hx Falls: No - GASTROINTESTINAL Hx Gastrointestinal Disorders: Yes Hx Diverticulitis: Yes - GENITOURINARY/GYNECOLOGICAL Hx Genitourinary Disorders: Yes Hx Urinary Tract Infection: Yes - PSYCHIATRIC Hx Psychophysiologic Disorder: No Hx Substance Use: No - SURGICAL HISTORY Hx Surgeries: Yes Hx Musculoskeletal Surgery: Yes Other/Comment: Bilateral Knee surgery, BUE surgeries - ANESTHESIA Hx Anesthesia: Yes Hx Anesthesia Reactions: No Hx Malignant Hyperthermia: No Meds Allergies/Adverse Reactions: Allergies Allergy/AdvReac Type Severity Reaction Status Date / Time No Known Allergies Allergy Verified 08/27/16 08:40 - Medications Medications: Current Medications Levothyroxine Sodium (Synthroid) 75 mcg PO DAILY@0630 [facility] Last Admin: 07/02/17 06:50 Dose: 75 mcg Montelukast Sodium (Singulair) 10 mg PO DAILY [facility] Last Admin: 07/02/17 08:42 Dose: 10 mg Physical Exam - Head Exam Head Exam: ATRAUMATIC - Eye Exam Eye Exam: Normal appearance - ENT Exam ENT Exam: Mucous Membranes Dry - Respiratory Exam Respiratory Exam: NORMAL BREATHING PATTERN - Cardiovascular Exam Cardiovascular Exam: +S1, +S2 - GI/Abdominal Exam GI & Abdominal Exam: Normal Bowel Sounds - Extremities Exam Extremities exam: Positive for: normal inspection - Neurological Exam Neurological exam: Oriented x3 - Psychiatric Exam Psychiatric exam: Normal Affect, Normal Mood - Skin Skin Exam: Warm Results - Vital Signs Recent Vital Signs: Last Vital Signs Temp 97.6 F 07/02/17 07:55 Pulse 64 07/02/17 07:55 Resp 16 07/02/17 07:55 BP 107/61 07/02/17 07:55 Pulse Ox 98 07/02/17 07:55 - Labs Result Diagrams: 07/02/17 10:35 07/02/17 10:35 Labs: Laboratory Results - last 24 hr 07/01/17 07/01/17 07/01/17 15:42 16:20 16:27 WBC RBC Hgb Hct MCV MCH MCHC RDW Plt Count MPV Neut % (Auto) Lymph % (Auto) Cloud % (Auto) Eos % (Auto) Baso % (Auto) Neut # (Auto) Lymph # (Auto) Cloud # (Auto) Eos # (Auto) Baso # (Auto) Retic Count PT INR APTT Sodium 141 Potassium 4.6 Chloride 105 Carbon Dioxide 23 Anion Gap 18 BUN 26 H Creatinine 0.8 Est GFR ( Amer) > 60 Est GFR (Non-Af Amer) > 60 POC Glucose (mg/dL) 124 H Random Glucose 113 H Calcium 8.7 Iron TIBC % Saturation Ferritin Total Bilirubin 3.7 H AST 42 H D ALT 31 Alkaline Phosphatase 78 Troponin I < 0.0120 NT-Pro-B Natriuret Pep 666 Total Protein 7.4 Albumin 4.0 Globulin 3.4 Albumin/Globulin Ratio 1.2 Vitamin B12 TSH 3rd Generation Stool Occult Blood Blood Type O POSITIVE Blood Type Confirm Antibody Screen Positive Antibody Identification WARM AUTO ANTIBODY LIZETTE, Poly Interpret Crossmatch See Detail BBK History Checked No verified bt 07/01/17 07/01/17 07/01/17 16:27 16:27 17:21 WBC 4.2 L RBC 1.29 L Hgb 4.7 L* D Hct 15.0 L MCV 116.5 H D MCH 36.1 H MCHC 31.0 L RDW 22.9 H Plt Count 107 L MPV 7.2 Neut % (Auto) 55.2 Lymph % (Auto) 36.5 Cloud % (Auto) 5.9 Eos % (Auto) 2.0 Baso % (Auto) 0.4 Neut # (Auto) 2.3 Lymph # (Auto) 1.6 Cloud # (Auto) 0.2 Eos # (Auto) 0.1 Baso # (Auto) 0.0 Retic Count PT 11.5 INR 1.0 APTT 24.8 L Sodium Potassium Chloride Carbon Dioxide Anion Gap BUN Creatinine Est GFR ( Amer) Est GFR (Non-Af Amer) POC Glucose (mg/dL) Random Glucose Calcium Iron TIBC % Saturation Ferritin Total Bilirubin AST ALT Alkaline Phosphatase Troponin I NT-Pro-B Natriuret Pep Total Protein Albumin Globulin Albumin/Globulin Ratio Vitamin B12 TSH 3rd Generation Stool Occult Blood Negative Blood Type Blood Type Confirm Antibody Screen Antibody Identification LIZETTE, Poly Interpret Crossmatch BBK History Checked 07/01/17 07/01/17 07/01/17 17:50 17:50 17:50 WBC RBC Hgb Hct MCV MCH MCHC RDW Plt Count MPV Neut % (Auto) Lymph % (Auto) Cloud % (Auto) Eos % (Auto) Baso % (Auto) Neut # (Auto) Lymph # (Auto) Cloud # (Auto) Eos # (Auto) Baso # (Auto) Retic Count 18.9 H PT INR APTT Sodium Potassium Chloride Carbon Dioxide Anion Gap BUN Creatinine Est GFR ( Amer) Est GFR (Non-Af Amer) POC Glucose (mg/dL) Random Glucose Calcium Iron 76 TIBC 366 % Saturation 21 Ferritin 188.0 Total Bilirubin AST ALT Alkaline Phosphatase Troponin I NT-Pro-B Natriuret Pep Total Protein Albumin Globulin Albumin/Globulin Ratio Vitamin B12 311 TSH 3rd Generation Stool Occult Blood Blood Type Blood Type Confirm Antibody Screen Antibody Identification LIZETTE, Poly Interpret Crossmatch BBK History Checked 07/01/17 07/01/17 07/01/17 18:49 19:48 21:00 WBC RBC Hgb Hct MCV MCH MCHC RDW Plt Count MPV Neut % (Auto) Lymph % (Auto) Cloud % (Auto) Eos % (Auto) Baso % (Auto) Neut # (Auto) Lymph # (Auto) Cloud # (Auto) Eos # (Auto) Baso # (Auto) Retic Count PT INR APTT Sodium Potassium Chloride Carbon Dioxide Anion Gap BUN Creatinine Est GFR ( Amer) Est GFR (Non-Af Amer) POC Glucose (mg/dL) Random Glucose Calcium Iron TIBC % Saturation Ferritin Total Bilirubin AST ALT Alkaline Phosphatase Troponin I NT-Pro-B Natriuret Pep Total Protein Albumin Globulin Albumin/Globulin Ratio Vitamin B12 TSH 3rd Generation 4.72 H Stool Occult Blood Blood Type Blood Type Confirm O POSITIVE Antibody Screen Antibody Identification LIZETTE, Poly Interpret Positive H Crossmatch BBK History Checked Assessment & Plan (1) Pancytopenia Assessment and Plan: Kirt positive hemolytic anemia; 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 abdominal lymphadenopathy if cytopenias do not improve, will need a bone marrow evaluation Thank you for this interesting consult. Status: Acute
--- NOTE | 2017-07-02 11:12 | CARD ---
APPROVED REPORT EKG Measurement Heart [id number] <Conclusion> Normal sinus rhythm Normal ECG
[2017-07-02 11:42] LABS: HEMOGLOBIN 6.9 g/dL (12.0-16.0); MEAN CELL VOLUME 104.5 fl (81.0-99.0); MEAN CORPUSCULAR HEMOGLOBIN 33.2 pg (27.0-31.0); MEAN CORPUSCULAR HGB CONC 31.7 g/dL (33.0-37.0); RBC 2.08 Mil/uL (3.80-5.20); WHITE BLOOD COUNT 3.8 K/uL (4.8-10.8)
[2017-07-02 12:01] LABS: ALB/GLOB RATIO 1.2 (1.0-2.1); ALBUMIN 3.8 g/dL (3.5-5.0); ALT/SGPT 27 U/L (9-52); AST/SGOT 34 U/L (14-36); BILIRUBIN,DIRECT 0.7 mg/ml (0.0-0.4); BLOOD UREA NITROGEN 22 mg/dl (7-17); CALCIUM 8.7 mg/dL (8.4-10.2); GFR AFRICAN-AMERICAN > 60; GFR NON-AFRICAN AMERICAN > 60
[2017-07-02] MEDS ORDERED: methylPREDNISolone 125 MG in Sodium Chloride 0.9% 50 ML IVPB ONE (22:20)
[2017-07-03] MEDS: Levothyroxine 75 MCG TAB PO SCH (05:40)
[2017-07-03 07:02] LABS: BASO % 0.3 % (0.0-2.0); EOS % 0.5 % (0.0-4.0); LYMPH # 1.4 K/uL (1.0-4.3); LYMPH % 30.4 % (20.0-40.0); MEAN CORPUSCULAR HEMOGLOBIN 33.2 pg (27.0-31.0); MEAN CORPUSCULAR HGB CONC 32.3 g/dL (33.0-37.0); MEAN PLATELET VOLUME 7.5 fl (7.2-11.7); MONO # 0.1 K/uL (0.0-0.8); MONO % 2.4 % (0.0-10.0); NEUT % 66.4 % (50.0-75.0); NRBC % 0.3 % (0.0-0.0); RBC 2.41 Mil/uL (3.80-5.20); RED CELL DISTRIBUTION WIDTH 26.6 % (11.5-14.5); WHITE BLOOD COUNT 4.5 K/uL (4.8-10.8)
[2017-07-03 09:51] LABS: MCH 37.4 pg (27.0-33.0); MCV 119.1 fL (80.0-100.0)
--- NOTE | 2017-07-03 11:13 | CARD ---
APPROVED REPORT EXAM: Two-dimensional and M-mode echocardiogram with Doppler and color Doppler. Other Information Quality : GoodRhythm : NSR INDICATION Dyspnea 2D DIMENSIONS IVSd1.04 (0.7-1.1cm)LVDd4.53 (3.9-5.9cm) LVOT Diameter1.75 (1.8-2.4cm)PWd0.73 (0.7-1.1cm) IVSs0.92 (0.8-1.2cm)LVDs3.24 (2.5-4.0cm) FS (%) 28.3 %PWs1.11 (0.8-1.2cm) M-Mode DIMENSIONS Left Atrium (MM)5.00 (2.5-4.0cm)IVSd0.82 (0.7-1.1cm) Aortic Root2.79 (2.2-3.7cm)LVDd6.12 (4.0-5.6cm) Aortic Cusp Exc.1.82 (1.5-2.0cm)PWd0.74 (0.7-1.1cm) IVSs1.00 cmFS (%) 38 % LVDs3.82 (2.0-3.8cm)PWs1.26 cm Mitral Valve MV E Oisnmudc340.2cm/sMV DECEL [id number] A Gotbwytd693.5cm/s MV VTP53tnZ/A ratio1.2MVA (PHT)4.07cm2 TDI Lateral E' Peak V9.78cm/sMedial E' Peak V11.16cm/sE/Lateral E'16.1 E/Medial E'14.1 Pulmonary Valve PV Peak Yenaexyd080.5cm/s Tricuspid Valve TR Peak Eyybphzl671ah/sRAP DKSJGNDX81ugPdGP Peak Gr.40mmHg [id number] LEFT VENTRICLE The left ventricle is normal size. There is normal left ventricular wall thickness. The left ventricular function is normal. The left ventricular ejection fraction is within the normal range. The Ejection Fraction is 60-65%. There is normal LV segmental wall motion. The left ventricular diastolic function is normal. RIGHT VENTRICLE The right ventricle is normal size. The right ventricular systolic function is normal. ATRIA The left atrium size is normal. The right atrium size is normal. AORTIC VALVE The aortic valve is normal in structure. No aortic regurgitation is present. There is no aortic valvular stenosis. MITRAL VALVE The mitral valve is normal in structure. There is no mitral valve stenosis. There is no mitral valve regurgitation noted. TRICUSPID VALVE The tricuspid valve is normal in structure. There is mild tricuspid regurgitation. Right ventricular systolic pressure is estimated at 50 mmHg. There is moderate-severe pulmonary hypertension. There is no tricuspid valve stenosis. PULMONIC VALVE The pulmonary valve is normal in structure. There is no pulmonic valvular regurgitation. GREAT VESSELS The aortic root is normal in size. The IVC is normal in size and collapses >50% with inspiration. PERICARDIAL EFFUSION The pericardium appears normal. <Conclusion> The left ventricle is normal size. The left ventricular function is normal. The left ventricular ejection fraction is within the normal range. The Ejection Fraction is 60-65%. There is mild tricuspid regurgitation. Right ventricular systolic pressure is estimated at 50 mmHg. There is moderate-severe pulmonary hypertension.
--- NOTE | 2017-07-03 20:42 | CP.PCM.PN ---
Subjective - Date & Time of Evaluation Date of Evaluation: 07/03/17 Time of Evaluation: 14:45 - Subjective Subjective: Feeling better but still dizzy when standing. Objective - Vital Signs/Intake and Output Vital Signs (last 24 hours): Temp Pulse Resp BP Pulse Ox 98 F 77 18 134/62 99 07/03/17 20:14 07/03/17 20:14 07/03/17 20:14 07/03/17 20:14 07/03/17 20:14 - Medications Medications: Current Medications Levothyroxine Sodium (Synthroid) 75 mcg PO DAILY@0630 [facility] Last Admin: 07/03/17 05:40 Dose: 75 mcg Montelukast Sodium (Singulair) 10 mg PO DAILY [facility] Last Admin: 07/03/17 09:09 Dose: 10 mg Prednisone (Prednisone Tab) 60 mg PO DAILY [facility] Last Admin: 07/03/17 09:08 Dose: 60 mg - Labs Labs: 07/03/17 04:50 07/02/17 10:35 PT 11.5 Seconds (9.8-13.1) 07/01/17 16:27 INR 1.0 (0.9-1.2) 07/01/17 16:27 APTT 24.8 Seconds (25.6-37.1) L 07/01/17 16:27 - Head Exam Head Exam: ATRAUMATIC - Eye Exam Eye Exam: Normal appearance - ENT Exam ENT Exam: Mucous Membranes Dry - Respiratory Exam Respiratory Exam: NORMAL BREATHING PATTERN - Cardiovascular Exam Cardiovascular Exam: +S1, +S2 - GI/Abdominal Exam GI & Abdominal Exam: Normal Bowel Sounds Assessment and Plan (1) Pancytopenia Assessment & Plan: Kirt positive hemolytic anemia; patient on steroids 1mg/kg daily reticulocytosis improving slowly transfusion support PRN no iron/b12/folate deficiency; elevated MCV secondary to reticulocytosis if cytopenias do not improve, will need a bone marrow evaluation Status: Acute
[2017-07-04] MEDS: Levothyroxine 75 MCG TAB PO SCH (05:55)
[2017-07-04 07:01] LABS: HEMOGLOBIN 8.1 g/dL (12.0-16.0); MEAN CELL VOLUME 103.4 fl (81.0-99.0); MEAN CORPUSCULAR HEMOGLOBIN 33.9 pg (27.0-31.0); MEAN CORPUSCULAR HGB CONC 32.8 g/dL (33.0-37.0); RBC 2.39 Mil/uL (3.80-5.20); RED CELL DISTRIBUTION WIDTH 27.8 % (11.5-14.5); WHITE BLOOD COUNT 4.9 K/uL (4.8-10.8)
[2017-07-04 07:26] LABS: ALB/GLOB RATIO 1.1 (1.0-2.1); ALBUMIN 3.7 g/dL (3.5-5.0); ALT/SGPT 33 U/L (9-52); AST/SGOT 29 U/L (14-36); BLOOD UREA NITROGEN 24 mg/dl (7-17); CALCIUM 9.1 mg/dL (8.4-10.2); GFR AFRICAN-AMERICAN > 60; GFR NON-AFRICAN AMERICAN > 60
[2017-07-05 05:57] LABS: ALB/GLOB RATIO 1.3 (1.0-2.1); ALBUMIN 3.7 g/dL (3.5-5.0); ALT/SGPT 36 U/L (9-52); AST/SGOT 27 U/L (14-36); BLOOD UREA NITROGEN 26 mg/dl (7-17); CALCIUM 9.1 mg/dL (8.4-10.2); GFR AFRICAN-AMERICAN > 60; GFR NON-AFRICAN AMERICAN > 60
[2017-07-05 06:04] LABS: HEMOGLOBIN 8.3 g/dL (12.0-16.0); MEAN CELL VOLUME 103.3 fl (81.0-99.0); MEAN CORPUSCULAR HEMOGLOBIN 34.1 pg (27.0-31.0); RBC 2.42 Mil/uL (3.80-5.20); RED CELL DISTRIBUTION WIDTH 26.5 % (11.5-14.5); WHITE BLOOD COUNT 3.9 K/uL (4.8-10.8)
[2017-07-05] MEDS: Levothyroxine 75 MCG TAB PO SCH (07:25)
[2017-07-05 08:27] LABS: HEPATITIS B SURFACE AG Negative (NEGATIVE)
[2017-07-05 08:32] LABS: HEPATITIS B CORE AB NEGATIVE (NEGATIVE)
[2017-07-05 08:33] LABS: HEPATITIS A IGM NEGATIVE (NEGATIVE)
[2017-07-05 08:43] LABS: HEPATITIS C ANTIBODY NEGATIVE (NEGATIVE)
--- NOTE | 2017-07-05 08:56 | PN ---
DATE: 07/04/2017 SUBJECTIVE: The patient is seen and examined. Interim events noted. Consults noted and appreciated. Hematology followup and interventions noted and appreciated. The patient remains in Progressive Care Unit on telemetry monitoring. The patient feels okay, but still complains of weakness and pain. No chest pain, no shortness of breath. PHYSICAL EXAMINATION: GENERAL: The patient is in no acute distress. VITAL SIGNS: Stable. HEART: S1 and S2, normal and regular. LUNGS: Good bilateral air exchange. ABDOMEN: Soft and nontender. EXTREMITIES: No edema, no calf swelling. No tenderness. No acute ischemia. CENTRAL NERVOUS SYSTEM: Essentially unchanged. DIAGNOSTIC DATA: Available diagnostic data reviewed. Telemetry monitoring does not show significant arrhythmia. PLAN: Overall, the patient's general medical condition is stable. Plan as ordered. Luke Riddle MD
--- NOTE | 2017-07-05 08:59 | PN ---
DATE: 07/03/2017 SUBJECTIVE: The patient is seen and examined. Interim events noted. Consults noted and appreciated. Hematology followup and interventions noted and appreciated. The patient remains in Progressive Care Unit on telemetry monitoring. Feels okay, little stronger, able to ambulate up to bathroom. No chest pain. No shortness of breath. No dizziness, no loss of consciousness. PHYSICAL EXAMINATION: GENERAL: The patient is in no acute distress. VITAL SIGNS: Stable. HEART: S1 and S2, normal and regular. LUNGS: Good bilateral air exchange. ABDOMEN: Soft and nontender. EXTREMITIES: No edema. No calf swelling. No tenderness. No acute ischemia. CENTRAL NERVOUS SYSTEM: Essentially unchanged. DIAGNOSTIC DATA: Available diagnostic data reviewed. Hemoglobin still remains low. Telemetry monitoring does not reveal significant arrhythmias. PLAN: Plan as ordered. Luke Riddle MD
--- NOTE | 2017-07-05 10:30 | PN ---
DATE: 07/05/2017 SUBJECTIVE: The patient is seen and examined. Interim events noted. Consults noted and appreciated. The patient remains in Progressive Care Unit on telemetry monitoring. The patient feels better. more stronger. No chest pain, no shortness of breath or dizziness. PHYSICAL EXAMINATION: GENERAL: The patient is in no acute distress. VITAL SIGNS: Stable. HEART: S1 and S2, normal and regular. Lungs: Good bilateral air exchange. GASTROINTESTINAL: Abdomen is soft and nontender. EXTREMITIES: No edema, no calf swelling, and no tenderness. No acute ischemia. CENTRAL NERVOUS SYSTEM: Exam is essentially unchanged. DIAGNOSTIC DATA: Available diagnostic data reviewed. Telemetry monitoring does not show significant arrhythmia. Hemoglobin is 8 plus. ASSESSMENT AND PLAN: Overall, the patient's general medical condition is stable. Plan as ordered. Luke Riddle MD
--- NOTE | 2017-07-05 18:37 | CP.PCM.CON ---
History of Present Illness - History of Present Illness History of Present Illness: Consultation for evaluation of pulmonary HTN / SOB and weakness HPI: 82 year old female with hx of presnting with c/o fatigue and SOB x 2 weeks accompanied with 14 lbs weight loss. Feeling depressed after her daughter and taking care of her grandkids. On presentation she was noted to have Hgb of 4.7 and was transfused after which she felt better. Her main complaint has been severe fatigue and lethargy with exertion and SOB. Denies any CP, palpitations, syncope. Review of Systems - Review of Systems Systems not reviewed;Unavailable: Acuity of Condition - Constitutional Constitutional: As Per HPI - EENT Eyes: As Per HPI Ears: As Per HPI Nose/Mouth/Throat: As Per HPI - Breasts Breasts: As Per HPI - Cardiovascular Cardiovascular: As Per HPI - Respiratory Respiratory: As Per HPI - Gastrointestinal Gastrointestinal: As Per HPI - Genitourinary Genitourinary: As Per HPI - Reproductive: Female Reproductive:Female: As Per HPI - Menstruation Menstruation: As Per HPI - Musculoskeletal Musculoskeletal: As Per HPI - Integumentary Integumentary: As Per HPI - Neurological Neurological: As Per HPI - Psychiatric Psychiatric: As Per HPI - Endocrine Endocrine: As Per HPI - Hematologic/Lymphatic Hematologic: As Per HPI Past Patient History - Past Medical History & Family History Past Medical History?: Yes - Past Social History Smoking Status: Never Smoked - CARDIAC Hx Cardiac Disorders: No - PULMONARY Hx Chronic Obstructive Pulmonary Disease (COPD): Yes - NEUROLOGICAL Hx Neurological Disorder: Yes Hx Dizziness: Yes - HEENT Hx HEENT Problems: No - RENAL Hx Chronic Kidney Disease: No - ENDOCRINE/METABOLIC Hx Hypothyroidism: Yes - HEMATOLOGICAL/ONCOLOGICAL Hx Blood Disorders: Yes Hx Anemia: Yes - INTEGUMENTARY Hx Dermatological Problems: No - MUSCULOSKELETAL/RHEUMATOLOGICAL Hx Arthritis: Yes (B TKR) - GASTROINTESTINAL Hx Gastrointestinal Disorders: Yes Hx Diverticulitis: Yes - GENITOURINARY/GYNECOLOGICAL Hx Genitourinary Disorders: Yes Hx Urinary Tract Infection: Yes - PSYCHIATRIC Hx Psychophysiologic Disorder: No Hx Substance Use: No - SURGICAL HISTORY Hx Surgeries: Yes Hx Musculoskeletal Surgery: Yes Other/Comment: Bilateral Knee surgery, BUE surgeries - ANESTHESIA Hx Anesthesia: Yes Hx Anesthesia Reactions: No Hx Malignant Hyperthermia: No Meds Home Medications: Home Medication List Medication Instructions Recorded Confirmed Type predniSONE [predniSONE Tab] 60 mg PO DAILY #30 tab 07/05/17 Rx Allergies/Adverse Reactions: Allergies Allergy/AdvReac Type Severity Reaction Status Date / Time No Known Allergies Allergy Verified 08/27/16 08:40 - Medications Medications: Current Medications Levothyroxine Sodium (Synthroid) 75 mcg PO DAILY@0630 [facility] Last Admin: 07/05/17 07:25 Dose: 75 mcg Montelukast Sodium (Singulair) 10 mg PO DAILY [facility] Last Admin: 07/05/17 08:37 Dose: 10 mg Prednisone (Prednisone Tab) 60 mg PO DAILY [facility] Last Admin: 07/05/17 08:37 Dose: 60 mg Physical Exam - Constitutional Appears: Well - Head Exam Head Exam: ATRAUMATIC, NORMAL INSPECTION, NORMOCEPHALIC - Eye Exam Eye Exam: EOMI, Normal appearance, PERRL Pupil Exam: NORMAL ACCOMODATION, PERRL - ENT Exam ENT Exam: Mucous Membranes Moist, Normal Exam - Neck Exam Neck exam: Positive for: Normal Inspection - Respiratory Exam Respiratory Exam: Clear to Auscultation Bilateral, NORMAL BREATHING PATTERN - Cardiovascular Exam Cardiovascular Exam: REGULAR RHYTHM - GI/Abdominal Exam GI & Abdominal Exam: Normal Bowel Sounds, Soft. absent: Tenderness - Extremities Exam Extremities exam: Positive for: normal inspection - Back Exam Back exam: NORMAL INSPECTION - Neurological Exam Neurological exam: Alert, CN II-XII Intact, Normal Gait, Oriented x3, Reflexes Normal - Psychiatric Exam Psychiatric exam: Normal Affect, Normal Mood - Skin Skin Exam: Dry, Intact, Normal Color, Warm Results - Vital Signs Recent Vital Signs: Last Vital Signs Temp 98.2 F 07/05/17 15:48 Pulse 60 07/05/17 15:48 Resp 20 07/05/17 15:48 BP 118/66 07/05/17 15:48 Pulse Ox 97 07/05/17 15:48 - Labs Result Diagrams: 07/05/17 04:30 07/05/17 04:30 Labs: Laboratory Results - last 24 hr 07/03/17 07/05/17 07/05/17 04:50 04:30 04:30 WBC 3.9 L RBC 2.42 L Hgb 8.3 L Hct 25.0 L MCV 103.3 H MCH 34.1 H MCHC 33.0 RDW 26.5 H Plt Count 90 L Sodium 142 Potassium 4.4 Chloride 106 Carbon Dioxide 24 Anion Gap 16 BUN 26 H Creatinine 0.9 Est GFR ( Amer) > 60 Est GFR (Non-Af Amer) > 60 Random Glucose 98 Calcium 9.1 Total Bilirubin 2.7 H AST 27 ALT 36 Alkaline Phosphatase 55 Total Protein 6.6 Albumin 3.7 Globulin 2.9 Albumin/Globulin Ratio 1.3 Hepatitis A IgM Ab Negative Hep Bs Antigen Negative Hep B Core IgM Ab Negative Hepatitis C Antibody Negative Assessment & Plan (1) SOB (shortness of breath) Assessment and Plan: etiology 2' to severe symptomatic anemia does have pulmonary HTN ( mod to severe ) Status: Acute (2) Pulmonary HTN Assessment and Plan: Echo shows RVSP of 50-60 further evaluation once anemia/pancytopenia w/u completed can dc home and do outpt w/u Status: Acute (3) Symptomatic anemia Assessment and Plan: s/p transfusion ? GI w/u heme w/u Status: Acute
[2017-07-06 00:06] VITALS: RESP 18; O2SAT 99
[2017-07-06 07:38] VITALS: BP 102/52; PULSE 65; TEMP 98
--- NOTE | 2017-07-06 08:53 | CP.PCM.PN ---
Subjective - Date & Time of Evaluation Date of Evaluation: 07/06/17 Time of Evaluation: 08:52 - Subjective Subjective: feeling better today Objective - Vital Signs/Intake and Output Vital Signs (last 24 hours): Temp Pulse Resp BP Pulse Ox 98.0 F 65 18 102/52 L 99 07/06/17 07:38 07/06/17 07:38 07/06/17 07:38 07/06/17 07:38 07/06/17 07:38 - Medications Medications: Current Medications Levothyroxine Sodium (Synthroid) 75 mcg PO DAILY@0630 [facility] Last Admin: 07/05/17 07:25 Dose: 75 mcg Montelukast Sodium (Singulair) 10 mg PO DAILY [facility] Last Admin: 07/05/17 08:37 Dose: 10 mg Prednisone (Prednisone Tab) 60 mg PO DAILY [facility] Last Admin: 07/05/17 08:37 Dose: 60 mg - Labs Labs: 07/05/17 04:30 07/05/17 04:30 PT 11.5 Seconds (9.8-13.1) 07/01/17 16:27 INR 1.0 (0.9-1.2) 07/01/17 16:27 APTT 24.8 Seconds (25.6-37.1) L 07/01/17 16:27 - Constitutional Appears: Well - Head Exam Head Exam: ATRAUMATIC, NORMAL INSPECTION, NORMOCEPHALIC - Eye Exam Eye Exam: EOMI, Normal appearance, PERRL Pupil Exam: NORMAL ACCOMODATION, PERRL - ENT Exam ENT Exam: Mucous Membranes Moist, Normal Exam - Neck Exam Neck Exam: Full ROM, Normal Inspection. absent: Lymphadenopathy - Respiratory Exam Respiratory Exam: Clear to Ausculation Bilateral, NORMAL BREATHING PATTERN - Cardiovascular Exam Cardiovascular Exam: REGULAR RHYTHM, +S1, +S2, Murmur - GI/Abdominal Exam GI & Abdominal Exam: Soft, Normal Bowel Sounds. absent: Tenderness - Exam Speculum exam: NORMAL SPECULUM EXAM - Extremities Exam Extremities Exam: Full ROM, Normal Capillary Refill, Normal Inspection. absent : Joint Swelling, Pedal Edema - Back Exam Back Exam: NORMAL INSPECTION - Neurological Exam Neurological Exam: Alert, Awake, CN II-XII Intact, Normal Gait, Oriented x3 - Psychiatric Exam Psychiatric exam: Normal Affect, Normal Mood - Skin Skin Exam: Dry, Intact, Normal Color, Warm Assessment and Plan (1) SOB (shortness of breath) Assessment & Plan: 2' to anemia improving Status: Acute (2) Pulmonary HTN Assessment & Plan: outpt w/u once anemia resolved etiolog of carlie +Ve hemolytic anemia not clear Status: Acute (3) Symptomatic anemia Status: Acute
--- NOTE | 2017-07-06 09:36 | CP.PCM.DIS ---
Provider - Provider Date of Admission: 07/01/17 17:23 Attending physician: Luke Riddle MD Consults: Dr Varner Hem-Onc Dr anderson Ship/Rec/Doc Control Time Spent in preparation of Discharge (in minutes): 20 Hospital Course - Lab Results Lab Results: Most Recent Lab Values WBC 3.9 K/uL (4.8-10.8) L 07/05/17 04:30 RBC 2.42 Mil/uL (3.80-5.20) L 07/05/17 04:30 Hgb 8.3 g/dL (12.0-16.0) L 07/05/17 04:30 Hct 25.0 % (34.0-47.0) L 07/05/17 04:30 MCV 103.3 fl (81.0-99.0) H 07/05/17 04:30 MCH 34.1 pg (27.0-31.0) H 07/05/17 04:30 MCHC 33.0 g/dL (33.0-37.0) 07/05/17 04:30 RDW 26.5 % (11.5-14.5) H 07/05/17 04:30 Plt Count 90 K/uL (130-400) L 07/05/17 04:30 MPV 7.5 fl (7.2-11.7) 07/03/17 04:50 Neut % (Auto) 66.4 % (50.0-75.0) 07/03/17 04:50 Lymph % (Auto) 30.4 % (20.0-40.0) 07/03/17 04:50 [place] % (Auto) 2.4 % (0.0-10.0) 07/03/17 04:50 Eos % (Auto) 0.5 % (0.0-4.0) 07/03/17 04:50 Baso % (Auto) 0.3 % (0.0-2.0) 07/03/17 04:50 Neut # (Auto) 3.0 K/uL (1.8-7.0) 07/03/17 04:50 Lymph # (Auto) 1.4 K/uL (1.0-4.3) 07/03/17 04:50 [place] # (Auto) 0.1 K/uL (0.0-0.8) 07/03/17 04:50 Eos # (Auto) 0.0 K/uL (0.0-0.7) 07/03/17 04:50 Baso # (Auto) 0.0 K/uL (0.0-0.2) 07/03/17 04:50 Retic Count 14.7 % (0.5-1.5) H 07/04/17 05:25 Hemoglobinopathy Red Blood Count 1.11 Mill/mcL (3.80-5.10) L 07/01/17 19:48 Hemoglobinopathy Hct 13.2 % (35.0-45.0) L 07/01/17 19:48 Hemoglobinopathy Hgb 4.1 g/dL (11.7-15.5) L 07/01/17 19:48 Hemoglobinopathy MCV 119.1 fL (80.0-100.0) H 07/01/17 19:48 Hemoglobinopathy MCH 37.4 pg (27.0-33.0) H 07/01/17 19:48 Hemoglobinopathy RDW 24.0 % (11.0-15.0) H 07/01/17 19:48 Haptoglobin < 20.0 mg/dL (30.0-200.0) L 07/02/17 10:35 PT 11.5 Seconds (9.8-13.1) 07/01/17 16:27 INR 1.0 (0.9-1.2) 07/01/17 16:27 APTT 24.8 Seconds (25.6-37.1) L 07/01/17 16:27 Sodium 142 mmol/l (132-148) 07/05/17 04:30 Potassium 4.4 MMOL/L (3.6-5.0) 07/05/17 04:30 Chloride 106 mmol/L (98-107) 07/05/17 04:30 Carbon Dioxide 24 mmol/L (22-30) 07/05/17 04:30 Anion Gap 16 (10-20) 07/05/17 04:30 BUN 26 mg/dl (7-17) H 07/05/17 04:30 Creatinine 0.9 mg/dl (0.7-1.2) 07/05/17 04:30 Est GFR ( Amer) > 60 07/05/17 04:30 Est GFR (Non-Af Amer) > 60 07/05/17 04:30 POC Glucose (mg/dL) 124 mg/dL (65-110) H 07/01/17 15:42 Random Glucose 98 mg/dL (65-105) 07/05/17 04:30 Calcium 9.1 mg/dL (8.4-10.2) 07/05/17 04:30 Iron 76 ug/dL (37-170) 07/01/17 17:50 TIBC 366 ug/dL (250-450) 07/01/17 17:50 % Saturation 21 % (20-55) 07/01/17 17:50 Erythropoietin 582.0 mIU/mL (2.6-18.5) H 07/01/17 17:50 Ferritin 188.0 ng/Ml (11.1-264.0) 07/01/17 17:50 Total Bilirubin 2.7 mg/dl (0.2-1.3) H 07/05/17 04:30 Direct Bilirubin 0.7 mg/ml (0.0-0.4) H 07/02/17 10:35 AST 27 U/L (14-36) 07/05/17 04:30 ALT 36 U/L (9-52) 07/05/17 04:30 Alkaline Phosphatase 55 U/L (38-126) 07/05/17 04:30 Lactate Dehydrogenase 965 U/L (313-618) H 07/02/17 10:35 Troponin I < 0.0120 ng/mL (0.00-0.120) 07/01/17 16:27 NT-Pro-B Natriuret Pep 666 pg/ml (0-900) 07/01/17 16:27 Total Protein 6.6 G/DL (6.3-8.2) 07/05/17 04:30 Albumin 3.7 g/dL (3.5-5.0) 07/05/17 04:30 Globulin 2.9 gm/dL (2.2-3.9) 07/05/17 04:30 Albumin/Globulin Ratio 1.3 (1.0-2.1) 07/05/17 04:30 Vitamin B12 311 pg/mL (239-931) 07/01/17 17:50 RBC Folate >1000 ng/mL RBC (>280) 07/01/17 17:50 TSH 3rd Generation 4.72 mIU/ML (0.46-4.68) H 07/01/17 21:00 Stool Occult Blood Negative (NEGATIVE) 07/01/17 17:21 Hepatitis A IgM Ab Negative (NEGATIVE) 07/03/17 04:50 Hep Bs Antigen Negative (NEGATIVE) 07/03/17 04:50 Hep B Core IgM Ab Negative (NEGATIVE) 07/03/17 04:50 Hepatitis C Antibody Negative (NEGATIVE) 07/03/17 04:50 HIV 1&2 Ag/Ab, 4th Gen Nonreactive (Nonreactive) 07/02/17 10:35 Blood Type O POSITIVE 07/01/17 16:20 Blood Type Confirm O POSITIVE 07/01/17 18:49 Antibody Screen Positive 07/01/17 16:20 Antibody Identification WARM AUTO ANTIBODY 07/01/17 16:20 LIZETTE, Poly Interpret Positive (NEGATIVE) H 07/01/17 19:48 Crossmatch See Detail 07/01/17 16:20 BBK History Checked No verified bt 07/01/17 16:20 - Hospital Course Hospital Course: 82 yo ,f, PMhx/o Anemia, Hypothyroidism, Diverticulosis, admitted for chronic anemia hgb 4.7 on admission. Patient c/o progressive general weakness for the last 2 weeks associated with SOB on exertion palpitation and weight loss 14 lbs. Patient transfused 3 units. Labs showed hemolytic anemia(-ret count, LDH high, haptoglobin low. Kirt +, Abd Us: hepatosplenomegaly . Dr Varner consulted. Patient given steroid treatment. Hgb stable 10.9. Patient also seen by Ship/Rec/Doc Control Dr Anderson for pulmonary HTN found on Echo. Patient advise to have f/u outpatient. Patient hemodynamically stable, seen by Dr Riddle and cleared to be discharged with steroids and f/u with her PMD, Ship/Rec/Doc Control, and Dr Varner Diagnosis on Discharge 1) Anemia Hemolytic -resolved 2) hypothyroidism -controlled Discharge Exam - Head Exam Head Exam: ATRAUMATIC, NORMAL INSPECTION, NORMOCEPHALIC - Eye Exam Eye Exam: Normal appearance - Respiratory Exam Respiratory Exam: Clear to PA & Lateral. absent: Rales, Rhonchi, Wheezes - Cardiovascular Exam Cardiovascular Exam: REGULAR RHYTHM, +S1, +S2 - GI/Abdominal Exam GI & Abdominal Exam: Normal Bowel Sounds, Soft. absent: Guarding, Rebound - Extremities Exam Extremities exam: normal inspection - Neurological Exam Neurological exam: Alert, Oriented x3 - Psychiatric Exam Psychiatric exam: Normal Affect, Normal Mood - Skin Skin Exam: Intact Discharge Plan - Follow Up Plan Condition: FAIR Disposition: HOME/ ROUTINE Instructions: Normocytic Normochromic Anemia (DC) Referrals: Rudi Woodson MD [Family Provider] -
[2017-07-06] MEDS: Levothyroxine 75 MCG TAB PO SCH (09:45)
[2017-07-06 11:10] LABS: HEMOGLOBIN 10.9 g/dL (12.0-16.0); MEAN CELL VOLUME 104.1 fl (81.0-99.0); MEAN CORPUSCULAR HEMOGLOBIN 34.4 pg (27.0-31.0); RBC 3.18 Mil/uL (3.80-5.20); RED CELL DISTRIBUTION WIDTH 24.9 % (11.5-14.5); WHITE BLOOD COUNT 5.1 K/uL (4.8-10.8)
[2017-07-06 16:34] LABS: HEMOGLOBIN A 96.5 Percent (>96.0); HEMOGLOBIN A2 2.5 Percent (1.8-3.5)
--- NOTE | 2017-07-06 18:25 | CP.PCM.PN ---
Subjective - Date & Time of Evaluation Date of Evaluation: 07/05/17 Time of Evaluation: 09:15 - Subjective Subjective: Feeling better Objective - Vital Signs/Intake and Output Vital Signs (last 24 hours): Temp Pulse Resp BP Pulse Ox 98.0 F 65 18 102/52 L 99 07/06/17 07:38 07/06/17 07:38 07/06/17 07:38 07/06/17 07:38 07/06/17 07:38 - Labs Labs: 07/06/17 10:40 07/05/17 04:30 PT 11.5 Seconds (9.8-13.1) 07/01/17 16:27 INR 1.0 (0.9-1.2) 07/01/17 16:27 APTT 24.8 Seconds (25.6-37.1) L 07/01/17 16:27 - Head Exam Head Exam: ATRAUMATIC - Eye Exam Eye Exam: Normal appearance - ENT Exam ENT Exam: Mucous Membranes Dry - Respiratory Exam Respiratory Exam: NORMAL BREATHING PATTERN - Cardiovascular Exam Cardiovascular Exam: +S1, +S2 - GI/Abdominal Exam GI & Abdominal Exam: Normal Bowel Sounds Assessment and Plan (1) Pancytopenia Assessment & Plan: Kirt positive hemolytic anemia; patient on steroids 1mg/kg daily reticulocytosis improving slowly transfusion support PRN no iron/b12/folate deficiency; elevated MCV secondary to reticulocytosis if cytopenias do not improve, will need a bone marrow evaluation Status: Acute
== END 2017-07-06 12:55 | disposition home or self-care (01) | DRG 812 ==
LOC: H.ER 15:13 → H.ERHOLD 17:23 → H.TEL 20:36
PROVIDERS: ADMIT Internal Medicine; ATTEND Internal Medicine
PROC: 30233N1 Transfusion of Nonautologous Red Blood Cells into Peripheral Vein, Percutaneous Approach (ICD-10-PCS; principal; 2017-07-01)
DX: D58.9 Hereditary hemolytic anemia, unspecified (principal); D61.818 Other pancytopenia; E03.9 Hypothyroidism, unspecified; I27.20 Pulmonary hypertension, unspecified; J44.9 Chronic obstructive pulmonary disease, unspecified; K57.90 Diverticulosis of intestine, part unspecified, without perforation or abscess without bleeding; Z80.3 Family history of malignant neoplasm of breast; Z87.440 Personal history of urinary (tract) infections; Z96.653 Presence of artificial knee joint, bilateral; M19.90 Unspecified osteoarthritis, unspecified site; R63.4 Abnormal weight loss; Z79.899 Other long term (current) drug therapy; R16.2 Hepatomegaly with splenomegaly, not elsewhere classified; R59.0 Localized enlarged lymph nodes

== ENCOUNTER 2017-08-30 11:32 | Emergency (ER) | payer MEDICARE, OTHER ==
[2017-08-30 11:32] VITALS: BMI 22.3
--- NOTE | 2017-08-30 12:35 | ED PDOC ---
Lower Extremity Pain/Injury Time Seen by Provider: 08/30/17 11:50 Chief Complaint (Nursing): Lower Extremity Problem/Injury Chief Complaint (Provider): Lower Extremity Problem/Injury History/Exam Limitations: no limitations Onset/Duration Of Symptoms: Days (x1 week) Additional Complaint(s): Jess Rose is a 82 y/o female with a past medical history of diverticulitis and hemolytic anemia, who presents to the ED with right inguinal and right thigh pain, onset x1 week ago. Patient reports that she was taking prednisone for her hemolytic anemia and was told to stop by her PMD which may be causing the pain. Pain has not improved since stopping steroid treatment. PMD: Rudi Woodson Past Medical History Reviewed: Historical Data, Nursing Documentation, Vital Signs Vital Signs: Last Vital Signs Temp 99.1 F 08/30/17 11:58 Pulse 93 H 08/30/17 11:58 Resp 20 08/30/17 12:03 BP 111/67 08/30/17 11:58 Pulse Ox 97 08/30/17 11:58 - Medical History PMH: Anemia, Arthritis (B TKR), Asthma, COPD, Diverticulitis, Hypothyroidism Denies: Chronic Kidney Disease - Family History Family History: States: Unknown Family Hx - Home Medications Home Medications: Ambulatory Orders Medication Instructions Recorded Montelukast [Singulair] 10 mg PO DAILY 11/09/14 Levothyroxine [Synthroid] 75 mcg PO DAILY 08/27/16 Meloxicam [Mobic] 7.5 mg PO DAILY 08/27/16 predniSONE [predniSONE Tab] 60 mg PO DAILY #30 tab 07/05/17 traMADol [Ultram] 50 mg PO Q8 #10 tab 08/30/17 - Allergies Allergies/Adverse Reactions: Allergies Allergy/AdvReac Type Severity Reaction Status Date / Time No Known Allergies Allergy Verified 08/30/17 12:03 Review of Systems ROS Statement: Except As Marked, All Systems Reviewed And Found Negative Constitutional: Negative for: Fever Musculoskeletal: Positive for: Leg Pain (right thigh ), Other (right inguinal pain) Physical Exam - Reviewed Nursing Documentation Reviewed: Yes Vital Signs Reviewed: Yes - Physical Exam Appears: Positive for: Non-toxic, No Acute Distress Head Exam: Positive for: ATRAUMATIC, NORMOCEPHALIC Cardiovascular/Chest: Positive for: Regular Rate, Rhythm. Negative for: Murmur Respiratory: Positive for: Normal Breath Sounds. Negative for: Respiratory Distress Gastrointestinal/Abdominal: Positive for: Tenderness (mild right inguinal and RLQ tenderness) Back: Positive for: Normal Inspection. Negative for: L CVA Tenderness, R CVA Tenderness, Vertebral Tenderness Extremity: Positive for: Tenderness (right inner thigh). Negative for: Swelling Neurologic/Psych: Positive for: Alert, Oriented. Negative for: Motor/Sensory Deficits - ECG O2 Sat by Pulse Oximetry: 97 (RA) Pulse Ox Interpretation: Normal Medical Decision Making Medical Decision Making: Time: 12:32 Initial Plan: --CT abd and pelvis IV contrast --CPK --US duplex lower extrm vein right 14:31 US FINDINGS: COMMON FEMORAL VEIN: Unremarkable. SUPERFICIAL FEMORAL VEIN: Unremarkable. POPLITEAL VEIN: Unremarkable. POSTERIOR TIBIAL VEIN: Unremarkable. OTHER FINDINGS: None. IMPRESSION: No evidence of deep venous thrombosis in the right lower extremity. Time 15:28 CT A/P w/Contrast FINDINGS: LOWER THORAX: Unremarkable. LIVER: Hepatomegaly. Hepatic steatosis. No focal masses. No intrahepatic bile duct dilatation or perihepatic ascites. GALLBLADDER AND BILE DUCTS: Cholelithiasis without CT evidence of acute cholecystitis. PANCREAS: Unremarkable. No gross lesion or ductal dilatation. SPLEEN: Splenomegaly. Orthogonal measurements 6 x 18.6 x 11 cm. ADRENALS: Unremarkable. No mass. KIDNEYS AND URETERS: Unremarkable. No hydronephrosis. No solid mass. VASCULATURE: Unremarkable. No aortic aneurysm. BOWEL: Diverticulosis without an acute inflammatory component or other associated pathologic process. Evidence of acute diverticulitis identified on the prior study corresponding to the sigmoid colon no longer identified appreciated APPENDIX: Normal appendix. PERITONEUM: Unremarkable. No free fluid. No free air. LYMPH NODES: Unremarkable. No enlarged lymph nodes. BLADDER: Unremarkable. REPRODUCTIVE: Unremarkable. BONES: No acute fracture. OTHER FINDINGS: None. IMPRESSION: No acute findings related to/accounting for the clinical presentation. Additional benign and/or incidental findings described above. Discussed with Dr. Varner. 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 Has been tapering prednisone. Will refer pt to PT when he sees her in office this week. P:t agreeable to plan. Scribe Attestation: Documented by Carlton Villaseñor, acting as a scribe for Kevin Leon MD. Provider Scribe Attestation: All medical record entries made by the Scribe were at my direction and personally dictated by me. I have reviewed the chart and agree that the record accurately reflects my personal performance of the history, physical exam, medical decision making, and the department course for this patient. I have also personally directed, reviewed, and agree with the discharge instructions and disposition. Disposition - Clinical Impression Clinical Impression: Myelopathy - Patient ED Disposition Is Patient to be Admitted: No Counseled Patient/Family Regarding: Studies Performed, Diagnosis, Need For Followup, Rx Given - Disposition Referrals: Ifeanyi Varner MD [Staff Provider] - Disposition: Routine/Home Disposition Time: 16:04 Condition: FAIR Prescriptions: traMADol [Ultram] 50 mg PO Q8 #10 tab Instructions: Muscle and Bone Pain (DC) Forms: [facility] [employer] (Vietnamese) Print Language: TRINIDADIAN
--- NOTE | 2017-08-30 14:33 | US ---
Date of service: 08/30/2017 PROCEDURE: Right lower extremity venous duplex Doppler. HISTORY: right leg pain COMPARISON: None available. TECHNIQUE: Common femoral, superficial femoral, popliteal and posterior tibial veins were evaluated. Flow was assessed with color Doppler, compressibility, assessment of phasic flow and augmentation response. FINDINGS: COMMON FEMORAL VEIN: Unremarkable. SUPERFICIAL FEMORAL VEIN: Unremarkable. POPLITEAL VEIN: Unremarkable. POSTERIOR TIBIAL VEIN: Unremarkable. OTHER FINDINGS: None. IMPRESSION: No evidence of deep venous thrombosis in the right lower extremity.
[2017-08-30] MEDS ORDERED: Iohexol 300 50 ML ONE (14:58)
--- NOTE | 2017-08-30 15:30 | CT ---
Date of service: 08/30/2017 PROCEDURE: CT Abdomen and Pelvis with contrast HISTORY: Abdominal pain. COMPARISON: 08/27/2016. CT abdomen and pelvis. TECHNIQUE: Contrast dose: 95 cc Omnipaque 300. Radiation dose: Total exam DLP = 488.32 mGy-cm. This CT exam was performed using one or more of the following dose reduction techniques: Automated exposure control, adjustment of the mA and/or kV according to patient size, and/or use of iterative reconstruction technique. FINDINGS: LOWER THORAX: Unremarkable. LIVER: Hepatomegaly. Hepatic steatosis. No focal masses. No intrahepatic bile duct dilatation or perihepatic ascites. GALLBLADDER AND BILE DUCTS: Cholelithiasis without CT evidence of acute cholecystitis. PANCREAS: Unremarkable. No gross lesion or ductal dilatation. SPLEEN: Splenomegaly. Orthogonal measurements 6 x 18.6 x 11 cm. ADRENALS: Unremarkable. No mass. KIDNEYS AND URETERS: Unremarkable. No hydronephrosis. No solid mass. VASCULATURE: Unremarkable. No aortic aneurysm. BOWEL: Diverticulosis without an acute inflammatory component or other associated pathologic process. Evidence of acute diverticulitis identified on the prior study corresponding to the sigmoid colon no longer identified appreciated APPENDIX: Normal appendix. PERITONEUM: Unremarkable. No free fluid. No free air. LYMPH NODES: Unremarkable. No enlarged lymph nodes. BLADDER: Unremarkable. REPRODUCTIVE: Unremarkable. BONES: No acute fracture. OTHER FINDINGS: None. IMPRESSION: No acute findings related to/accounting for the clinical presentation. Additional benign and/or incidental findings described above.
[2017-08-30 19:25] VITALS: BP 121/83; PULSE 78; RESP 17; TEMP 98.1; O2SAT 100
== END 2017-08-30 18:22 | disposition home or self-care (01) ==
LOC: H.ER 11:32
DX: M47.12 Other spondylosis with myelopathy, cervical region (principal); T38.0X5A Adverse effect of glucocorticoids and synthetic analogues, initial encounter; E03.9 Hypothyroidism, unspecified
CPT/HCPCS: 74177; 81025; 82550; 93971; 99284; Q9967

== ENCOUNTER 2017-10-25 13:48 | Inpatient (IN) | payer OTHER ==
[2017-10-25 13:49] VITALS: BMI 24.5
[2017-10-25] MEDS ORDERED: MethylPREDNISolone 40 mg Vial IVP ONE (16:00)
--- NOTE | 2017-10-25 16:00 | ED PDOC ---
HPI: General Adult Time Seen by Provider: 10/25/17 14:20 Chief Complaint (Nursing): Abnormal Labs Chief Complaint (Provider): Abnormal labs History Per: Patient History/Exam Limitations: no limitations Additional Complaint(s): 82yo female, sent to ER from transfusion center for evaluation. Patient was scheduled for a RBC transfusion but she was found to have too many antibodies and the blood is not available until 10/28/17. Patient has a history of anemia and noted to currently have Hgb level of 6.9 which is down from 8.6 on 10/14. Patient currently complains of generalized weakness, shortness of breath with exertion, and dizziness. She denies any chest pain and palpitations. Patient's son is at bedside and states she has had transfusions in the past as well. Past Medical History Reviewed: Historical Data, Nursing Documentation, Vital Signs Vital Signs: Last Vital Signs Temp 98.6 F 10/25/17 13:54 Pulse 90 10/25/17 15:06 Resp 23 10/25/17 15:06 BP 110/63 10/25/17 13:54 Pulse Ox 100 10/25/17 15:06 - Medical History PMH: Anemia, Arthritis, Asthma, COPD, Diverticulitis, Hypothyroidism Denies: Chronic Kidney Disease - Surgical History Surgical History: No Surg Hx - Family History Family History: States: No Known Family Hx - Living Arrangements Living Arrangements: With Family - Home Medications Home Medications: Ambulatory Orders Medication Instructions Recorded Montelukast [Singulair] 10 mg PO DAILY 11/09/14 Levothyroxine [Synthroid] 75 mcg PO DAILY 08/27/16 Cyanocobalamin (Vitamin B-12) 1 tab PO DAILY 10/25/17 [Vitamin B-12] Folic Acid [Folic Acid] 1 tab PO DAILY 10/25/17 - Allergies Allergies/Adverse Reactions: Allergies Allergy/AdvReac Type Severity Reaction Status Date / Time No Known Allergies Allergy Verified 10/25/17 13:53 Review of Systems ROS Statement: Except As Marked, All Systems Reviewed And Found Negative Constitutional: Positive for: Malaise Cardiovascular: Negative for: Chest Pain, Palpitations Respiratory: Positive for: SOB with Exertion Neurological: Positive for: Dizziness Physical Exam - Reviewed Nursing Documentation Reviewed: Yes Vital Signs Reviewed: Yes - Physical Exam Appears: Positive for: Non-toxic, No Acute Distress Head Exam: Positive for: ATRAUMATIC, NORMAL INSPECTION, NORMOCEPHALIC Skin: Positive for: Warm, Pallor Eye Exam: Positive for: EOMI, PERRL, Other (conjunctival pallor) ENT: Positive for: Normal ENT Inspection Neck: Positive for: Normal, Painless ROM, Supple Cardiovascular/Chest: Positive for: Regular Rate, Rhythm. Negative for: Tachycardia Respiratory: Positive for: Normal Breath Sounds. Negative for: Respiratory Distress Gastrointestinal/Abdominal: Positive for: Normal Exam, Soft Back: Positive for: Normal Inspection Extremity: Positive for: Normal ROM Neurologic/Psych: Positive for: Alert, Oriented - ECG O2 Sat by Pulse Oximetry: 100 (RA) Pulse Ox Interpretation: Normal Medical Decision Making Medical Decision Making: Impression: Blood transfusion Plan: [address] Varner, patient's insurance underwriter sales, who states patient has a history of autoimmune hemolysis. He is requesting repeat CBC, CMP, retic count, LDH and haptoglobin. Also requesting Solumedrol 125mg IV x 1 and 40mg PO BID. Orders placed per Dr. Varner's request. Scribe Attestation: Documented by Edna Gee, acting as a scribe for Cecy Martin MD. Provider Scribe Attestation: All medical record entries made by the Scribe were at my direction and personally dictated by me. I have reviewed the chart and agree that the record accurately reflects my personal performance of the history, physical exam, medical decision making, and the department course for this patient. I have also personally directed, reviewed, and agree with the discharge instructions and disposition. Disposition - Disposition
[2017-10-25 16:44] LABS: ALB/GLOB RATIO 1.6 (1.0-2.1); ALBUMIN 4.1 g/dL (3.5-5.0); ALT/SGPT 36 U/L (9-52); AST/SGOT 51 U/L (14-36); BLOOD UREA NITROGEN 18 mg/dl (7-17); CALCIUM 9.2 mg/dL (8.4-10.2); GFR NON-AFRICAN AMERICAN > 60
[2017-10-25 17:30] LABS: BASO % 0.4 % (0.0-2.0); EOS # 0.1 K/uL (0.0-0.7); EOS % 1.5 % (0.0-4.0); LYMPH # 1.7 K/uL (1.0-4.3); LYMPH % 41.8 % (20.0-40.0); MEAN CELL VOLUME 115.3 fl (81.0-99.0); MEAN CORPUSCULAR HEMOGLOBIN 37.2 pg (27.0-31.0); MEAN CORPUSCULAR HGB CONC 32.3 g/dL (33.0-37.0); MEAN PLATELET VOLUME 8.1 fl (7.2-11.7); MONO # 0.3 K/uL (0.0-0.8); NEUT % 48.3 % (50.0-75.0); NRBC % 2.2 % (0.0-0.0); RBC 1.6 Mil/uL (3.80-5.20); RED CELL DISTRIBUTION WIDTH 20.3 % (11.5-14.5); WHITE BLOOD COUNT 4.1 K/uL (4.8-10.8)
[2017-10-25 17:34] LABS: HEMOGLOBIN 5.9 g/dL (12.0-16.0)
[2017-10-25] MEDS: MethylPREDNISolone 40 mg Vial IVP SCH (19:15)
[2017-10-25] MEDS ORDERED: methylPREDNISolone 40 MG in Sodium Chloride 0.9% 50 ML IVPB SCH (21:00)
--- NOTE | 2017-10-25 22:35 | CP.PCM.CON ---
History of Present Illness - History of Present Illness History of Present Illness: 82 year old female with a history of hypothyroid, arthritis, autoimmune hemolytic anemia, admitted with severe anemia. The patient was to receive 2U PRBC in outpatient chemo this morning but was noted to have multiple antibodies and no matched PRBC. Her hgb has acutely dropped from 8.6 to 5.9. She had been on a steroid taper in the past which improved her hgb but was complicated by steroid induced myopathy. She does admit to progressive fatigue, headache, and dizziness with exertion. She is s/p IV solumedrol. Past medical history: hypothyroid, arthritis, autoimmune hemolytic anemia Past surgical history: B/L knee replacement, B/L carpal tunnel repair Family history: Daughter had breast cancer Social history: Denies tobacco, alcohol, and illicit drug use Allergies: NKA Review of systems: All remaining review of systems including HEENT, cardiovascular, respiratory, gastrointestinal, genitourinary, musculoskeletal, dermatologic, neurologic, and psychiatric are negative unless mentioned in the HPI Past Patient History - Past Medical History & Family History Past Medical History?: Yes - Past Social History Smoking Status: Never Smoked - CARDIAC Hx Cardiac Disorders: No - PULMONARY Hx Asthma: Yes Hx Chronic Obstructive Pulmonary Disease (COPD): Yes - NEUROLOGICAL Hx Neurological Disorder: Yes Hx Dizziness: Yes - HEENT Hx HEENT Problems: No - RENAL Hx Chronic Kidney Disease: No - ENDOCRINE/METABOLIC Hx Endocrine Disorders: Yes - HEMATOLOGICAL/ONCOLOGICAL Hx Blood Disorders: Yes - INTEGUMENTARY Hx Dermatological Problems: No - MUSCULOSKELETAL/RHEUMATOLOGICAL Hx Arthritis: Yes - GASTROINTESTINAL Hx Diverticulitis: Yes - GENITOURINARY/GYNECOLOGICAL Hx Genitourinary Disorders: Yes Hx Urinary Tract Infection: Yes - PSYCHIATRIC Hx Psychophysiologic Disorder: No Hx Substance Use: No - SURGICAL HISTORY Hx Surgeries: Yes Hx Musculoskeletal Surgery: Yes Other/Comment: Bilateral Knee surgery, BUE surgeries - ANESTHESIA Hx Anesthesia: Yes Hx Anesthesia Reactions: No Hx Malignant Hyperthermia: No Meds Home Medications: Home Medication List Medication Instructions Recorded Confirmed Type methylPREDNISolone [Solu-Medrol] 40 mg IVP BID ml 10/25/17 Rx Allergies/Adverse Reactions: Allergies Allergy/AdvReac Type Severity Reaction Status Date / Time No Known Allergies Allergy Verified 10/25/17 13:53 - Medications Medications: Current Medications Folic Acid (Folic Acid) 1 mg PO DAILY [facility] Home [facility] (Cyanocobalamin (Vitamin B-12) [Vitamin B-12]) 1 tab PO DAILY [facility] Levothyroxine Sodium (Synthroid) 75 mcg PO DAILY [facility] Methylprednisolone (Solu-Medrol) 40 mg IVP BID [facility] Last Admin: 10/25/17 19:15 Dose: Not Given Montelukast Sodium (Singulair) 10 mg PO DAILY [facility] Physical Exam - Head Exam Head Exam: ATRAUMATIC - Eye Exam Eye Exam: Normal appearance - ENT Exam ENT Exam: Mucous Membranes Dry - Respiratory Exam Respiratory Exam: NORMAL BREATHING PATTERN - Cardiovascular Exam Cardiovascular Exam: +S1, +S2 - GI/Abdominal Exam GI & Abdominal Exam: Normal Bowel Sounds - Extremities Exam Extremities exam: Positive for: normal inspection - Neurological Exam Neurological exam: Oriented x3 - Psychiatric Exam Psychiatric exam: Normal Affect, Normal Mood - Skin Skin Exam: Warm Results - Vital Signs Recent Vital Signs: Last Vital Signs Temp 97.9 F 10/25/17 21:41 Pulse 91 H 10/25/17 21:41 Resp 20 10/25/17 21:41 BP 127/71 10/25/17 21:41 Pulse Ox 98 10/25/17 21:41 - Labs Result Diagrams: 10/25/17 16:17 10/25/17 16:17 Labs: Laboratory Results - last 24 hr 10/25/17 10/25/17 10/25/17 16:17 16:17 16:17 WBC 4.1 L RBC 1.60 L Hgb 5.9 L* Hct 18.4 L MCV 115.3 H D MCH 37.2 H MCHC 32.3 L RDW 20.3 H Plt Count 142 MPV 8.1 Neut % (Auto) 48.3 L Lymph % (Auto) 41.8 H Henry % (Auto) 8.0 Eos % (Auto) 1.5 Baso % (Auto) 0.4 Neut # (Auto) 2.0 Lymph # (Auto) 1.7 Henry # (Auto) 0.3 Eos # (Auto) 0.1 Baso # (Auto) 0.0 Retic Count Haptoglobin < 20.0 L Sodium 138 Potassium 4.6 Chloride 108 H Carbon Dioxide 23 Anion Gap 12 BUN 18 H Creatinine 0.9 Est GFR ( Amer) > 60 Est GFR (Non-Af Amer) > 60 Random Glucose 120 H Calcium 9.2 Total Bilirubin 3.5 H AST 51 H D ALT 36 Alkaline Phosphatase 64 Lactate Dehydrogenase 953 H Total Protein 6.7 Albumin 4.1 Globulin 2.6 Albumin/Globulin Ratio 1.6 10/25/17 16:17 WBC RBC Hgb Hct MCV MCH MCHC RDW Plt Count MPV Neut % (Auto) Lymph % (Auto) Henry % (Auto) Eos % (Auto) Baso % (Auto) Neut # (Auto) Lymph # (Auto) Henry # (Auto) Eos # (Auto) Baso # (Auto) Retic Count 17.9 H D Haptoglobin Sodium Potassium Chloride Carbon Dioxide Anion Gap BUN Creatinine Est GFR ( Amer) Est GFR (Non-Af Amer) Random Glucose Calcium Total Bilirubin AST ALT Alkaline Phosphatase Lactate Dehydrogenase Total Protein Albumin Globulin Albumin/Globulin Ratio Assessment & Plan (1) Autoimmune hemolytic anemia Assessment and Plan: on IV steroids transfusion support when matched blood available will need bone marrow biopsy in AM to rule out occult bone marrow malignancy if no evidence of malignancy, will require outpatient rituximab Status: Acute (2) Leukopenia Assessment and Plan: mild no intervention Thank you for this interesting consult. Status: Acute
[2017-10-26 05:16] LABS: BASO % 0.2 % (0.0-2.0); EOS % 0.2 % (0.0-4.0); LYMPH # 1.1 K/uL (1.0-4.3); LYMPH % 39.6 % (20.0-40.0); MEAN CELL VOLUME 114.9 fl (81.0-99.0); MEAN CORPUSCULAR HEMOGLOBIN 35.6 pg (27.0-31.0); MEAN PLATELET VOLUME 7.5 fl (7.2-11.7); MONO # 0.1 K/uL (0.0-0.8); MONO % 3.5 % (0.0-10.0); NEUT # 1.6 K/uL (1.8-7.0); NEUT % 56.5 % (50.0-75.0); NRBC % 1.1 % (0.0-0.0); RBC 1.55 Mil/uL (3.80-5.20); RED CELL DISTRIBUTION WIDTH 20.3 % (11.5-14.5); WHITE BLOOD COUNT 2.8 K/uL (4.8-10.8)
[2017-10-26 05:26] LABS: HEMOGLOBIN 5.5 g/dL (12.0-16.0)
[2017-10-26 05:30] LABS: ALB/GLOB RATIO 1.4 (1.0-2.1); ALT/SGPT 34 U/L (9-52); AST/SGOT 31 U/L (14-36); BLOOD UREA NITROGEN 20 mg/dl (7-17); CALCIUM 9.3 mg/dL (8.4-10.2); GFR NON-AFRICAN AMERICAN > 60
[2017-10-26] MEDS ORDERED: Pneumococcal 23-Valent Vaccine IM ONE (06:00)
[2017-10-26] MEDS: Levothyroxine 75 MCG TAB PO SCH (06:02)
[2017-10-26] MEDS ORDERED: methylPREDNISolone 40 MG in Sodium Chloride 0.9% 50 ML IVP SCH (09:00)
--- NOTE | 2017-10-26 09:10 | RAD ---
Date of service: 10/25/2017 HISTORY: Anemia COMPARISON: Portable chest 07/01/2017. FINDINGS: LUNGS: No active pulmonary disease. PLEURA: No significant pleural effusion identified, no pneumothorax apparent. CARDIOVASCULAR: Normal. OSSEOUS STRUCTURES: No significant abnormalities. VISUALIZED UPPER ABDOMEN: Normal. OTHER FINDINGS: None. IMPRESSION: No interval acute cardiopulmonary disease appreciated.
[2017-10-26] MEDS: MethylPREDNISolone 40 mg Vial IVP SCH ×2 (09:21→17:24)
[2017-10-26] MEDS ORDERED: Lidocaine 2% Inj (20ml) INFIL ONE (10:16)
--- NOTE | 2017-10-26 11:30 | CP.PCM.PN ---
Subjective - Date & Time of Evaluation Date of Evaluation: 10/26/17 Time of Evaluation: 11:00 - Subjective Subjective: Bone marrow aspiration and biopsy procedure Indication: Refractory autoimmune hemolytic anemia, intermittent pancytopenia - Time-out was called to confirm: patients name and date of , procedure, side and site of biopsy, safety procedures followed. - Performed by: self. - Informed consent: signed by patient. - Aspiration and biopsy site: [left] superior posterior iliac crest. - Patient position: [right lateral decubitus] - Preparation and technique: sterile preparation of site with Betadyne, Chloraprep, draped to expose aspirate/biopsy area, local anesthesia with 2% lidocaine (approximately 10ml), frequent pressure application on incision to maintain hemostasis. - Tissue obtained: bone marrow aspirate and biopsy were successfully obtained in sterile manner. - Toleration of procedure and any complications: slight localized bleeding (<1ml ). Patient tolerated procedure well with minimal pain. Objective - Vital Signs/Intake and Output Vital Signs (last 24 hours): Temp Pulse Resp BP Pulse Ox 97.4 F L 78 18 105/66 100 10/26/17 08:04 10/26/17 08:04 10/26/17 08:04 10/26/17 08:04 10/26/17 08:04 - Medications Medications: Current Medications Cyanocobalamin (Vitamin B12 1000 Mcg Tab) 1,000 mcg PO DAILY [facility] Last Admin: 10/26/17 09:21 Dose: 1,000 mcg Folic Acid (Folic Acid) 1 mg PO DAILY [facility] Last Admin: 10/26/17 09:21 Dose: 1 mg Levothyroxine Sodium (Synthroid) 75 mcg PO DAILY@0630 [facility] Last Admin: 10/26/17 06:02 Dose: 75 mcg Methylprednisolone (Solu-Medrol) 40 mg IVP BID [facility] Last Admin: 10/26/17 09:21 Dose: 40 mg Montelukast Sodium (Singulair) 10 mg PO DAILY [facility] Last Admin: 10/26/17 09:21 Dose: 10 mg - Labs Labs: 10/26/17 04:20 10/26/17 04:20 - Head Exam Head Exam: ATRAUMATIC - Eye Exam Eye Exam: Normal appearance - ENT Exam ENT Exam: Mucous Membranes Dry - Respiratory Exam Respiratory Exam: NORMAL BREATHING PATTERN - Cardiovascular Exam Cardiovascular Exam: +S1, +S2 - GI/Abdominal Exam GI & Abdominal Exam: Normal Bowel Sounds - Extremities Exam Extremities Exam: Normal Inspection Assessment and Plan (1) Autoimmune hemolytic anemia Assessment & Plan: awaiting compatible PRBC on steroids Status: Acute (2) Leukopenia Assessment & Plan: f/u bone marrow Status: Acute
--- NOTE | 2017-10-26 11:48 | CP.PCM.HP ---
<Kt Bentley - Last Filed: 10/26/17 19:44> History of Present Illness - History of Present Illness History of Present Illness: pt seen and examined at bedside with Dr. Monaco. 82 yo f with pmhx of autoimmune hemolytic anemia, hypothyroid, arthritis presented to the ED from the transfusion center due to antibodies found with cross matching blood. Pt was symptomatic including weakness, dizziness and shortness of breath. famhx: breast cancer surg: knee replacement, carpal tunnel soc: denies smoking, alcohol, illicit drugs NKDA Present on Admission - Present on Admission Any Indicators Present on Admission: No History of Uncontrolled Diabetes: No Urinary Catheter: No Review of Systems - Constitutional Constitutional: As Per HPI, Weakness - Cardiovascular Cardiovascular: absent: Chest Pain - Respiratory Respiratory: absent: Dyspnea - Gastrointestinal Gastrointestinal: absent: Abdominal Pain - Neurological Neurological: Dizziness Past Patient History - Past Medical History & Family History Past Medical History?: Yes - Past Social History Smoking Status: Never Smoked Alcohol: None Drugs: Denies Home Situation {Lives}: With Family - CARDIAC Hx Cardiac Disorders: No - PULMONARY Hx Asthma: Yes Hx Chronic Obstructive Pulmonary Disease (COPD): Yes - NEUROLOGICAL Hx Neurological Disorder: Yes Hx Dizziness: Yes - HEENT Hx HEENT Problems: No - RENAL Hx Chronic Kidney Disease: No - ENDOCRINE/METABOLIC Hx Endocrine Disorders: Yes - HEMATOLOGICAL/ONCOLOGICAL Hx Blood Disorders: Yes - INTEGUMENTARY Hx Dermatological Problems: No - MUSCULOSKELETAL/RHEUMATOLOGICAL Hx Arthritis: Yes - GASTROINTESTINAL Hx Diverticulitis: Yes - GENITOURINARY/GYNECOLOGICAL Hx Genitourinary Disorders: Yes Hx Urinary Tract Infection: Yes - PSYCHIATRIC Hx Psychophysiologic Disorder: No Hx Substance Use: No - SURGICAL HISTORY Hx Surgeries: Yes Hx Musculoskeletal Surgery: Yes Other/Comment: Bilateral Knee surgery, BUE surgeries - ANESTHESIA Hx Anesthesia: Yes Hx Anesthesia Reactions: No Hx Malignant Hyperthermia: No Meds Home Medications: Home Medication List Medication Instructions Recorded Confirmed Type Pantoprazole Sodium [Protonix] 40 mg PO DAILY #14 ect 10/28/17 Rx Prednisone [Deltasone] 20 mg PO DAILY #15 tablet 10/28/17 Rx Allergies/Adverse Reactions: Allergies Allergy/AdvReac Type Severity Reaction Status Date / Time No Known Allergies Allergy Verified 10/25/17 13:53 Physical Exam - Constitutional Appears: No Acute Distress Additional comments: pale - Eye Exam Eye Exam: EOMI - Respiratory Exam Respiratory Exam: Clear to Auscultation Bilateral, NORMAL BREATHING PATTERN. absent: Wheezes - Cardiovascular Exam Cardiovascular Exam: +S1, +S2 - GI/Abdominal Exam GI & Abdominal Exam: Normal Bowel Sounds, Soft. absent: Tenderness Results - Vital Signs Recent Vital Signs: Last Vital Signs Temp 97.4 F L 10/26/17 08:04 Pulse 78 10/26/17 08:04 Resp 18 10/26/17 08:04 BP 105/66 10/26/17 08:04 Pulse Ox 100 10/26/17 08:04 - Labs Result Diagrams: 10/26/17 04:20 10/26/17 04:20 Labs: Laboratory Results - last 24 hr 10/25/17 10/25/17 10/25/17 16:17 16:17 16:17 WBC 4.1 L RBC 1.60 L Hgb 5.9 L* Hct 18.4 L MCV 115.3 H D MCH 37.2 H MCHC 32.3 L RDW 20.3 H Plt Count 142 MPV 8.1 Neut % (Auto) 48.3 L Lymph % (Auto) 41.8 H [place] % (Auto) 8.0 Eos % (Auto) 1.5 Baso % (Auto) 0.4 Neut # (Auto) 2.0 Lymph # (Auto) 1.7 [place] # (Auto) 0.3 Eos # (Auto) 0.1 Baso # (Auto) 0.0 Retic Count Haptoglobin < 20.0 L Sodium 138 Potassium 4.6 Chloride 108 H Carbon Dioxide 23 Anion Gap 12 BUN 18 H Creatinine 0.9 Est GFR ( Amer) > 60 Est GFR (Non-Af Amer) > 60 Random Glucose 120 H Calcium 9.2 Phosphorus Magnesium Total Bilirubin 3.5 H AST 51 H D ALT 36 Alkaline Phosphatase 64 Lactate Dehydrogenase 953 H Total Protein 6.7 Albumin 4.1 Globulin 2.6 Albumin/Globulin Ratio 1.6 10/25/17 10/26/17 10/26/17 16:17 04:20 04:20 WBC 2.8 L RBC 1.55 L Hgb 5.5 L* Hct 17.8 L MCV 114.9 H MCH 35.6 H MCHC 31.0 L RDW 20.3 H Plt Count 109 L D MPV 7.5 Neut % (Auto) 56.5 Lymph % (Auto) 39.6 [place] % (Auto) 3.5 Eos % (Auto) 0.2 Baso % (Auto) 0.2 Neut # (Auto) 1.6 L Lymph # (Auto) 1.1 [place] # (Auto) 0.1 Eos # (Auto) 0.0 Baso # (Auto) 0.0 Retic Count 17.9 H D 17.5 H Haptoglobin Sodium 140 Potassium 4.6 Chloride 105 Carbon Dioxide 22 Anion Gap 18 BUN 20 H Creatinine 0.8 Est GFR ( Amer) > 60 Est GFR (Non-Af Amer) > 60 Random Glucose 148 H Calcium 9.3 Phosphorus 3.8 Magnesium 2.3 Total Bilirubin 2.0 H AST 31 ALT 34 Alkaline Phosphatase 66 Lactate Dehydrogenase Total Protein 7.0 Albumin 4.0 Globulin 3.0 Albumin/Globulin Ratio 1.4 Assessment & Plan (1) Autoimmune hemolytic anemia Status: Acute (2) Leukopenia Status: Acute (3) Symptomatic anemia Status: Acute - Assessment and Plan (Free Text) Plan: 82 yo f with pmhx of autoimmune hemolytic anemia, hypothyroid, arthritis admitted for anemia requiring blood transfusion type and cross match pending matching Hematology: Dr. Varner: recommendations appreciated monitor vitals and h/h Continue with current treatment and care plan as ordered case dw Dr. Jacinda bentley md pgy2 <Ranjeet Monaco - Last Filed: 10/28/17 15:48> Results - Vital Signs Recent Vital Signs: Last Vital Signs Temp 97.7 F 10/28/17 12:22 Pulse 66 10/28/17 12:22 Resp 20 10/28/17 12:22 BP 115/64 10/28/17 12:22 Pulse Ox 99 10/28/17 12:22 - Labs Result Diagrams: 10/28/17 05:24 10/28/17 05:24 Labs: Laboratory Results - last 24 hr 10/28/17 10/28/17 05:24 05:24 WBC 4.8 RBC 2.54 L Hgb 8.6 L Hct 26.5 L MCV 104.3 H MCH 33.8 H MCHC 32.4 L RDW 25.7 H Plt Count 114 L Sodium 142 Potassium 4.6 Chloride 107 Carbon Dioxide 21 L Anion Gap 19 BUN 26 H Creatinine 0.7 Est GFR ( Amer) > 60 Est GFR (Non-Af Amer) > 60 Random Glucose 131 H Calcium 9.1 Assessment & Plan - Assessment and Plan (Free Text) Plan: I was present during evaluation and discussed with Dr Bentley re plans of care and mgt. Ranjeet Monaco M.D.
--- NOTE | 2017-10-26 19:11 | CARD ---
APPROVED REPORT Date of service: 10/26/2017 <Conclusion> Normal sinus rhythm Normal ECG
[2017-10-27] MEDS: Levothyroxine 75 MCG TAB PO SCH (06:05)
[2017-10-27 08:50] LABS: MEAN CELL VOLUME 103.8 fl (81.0-99.0); MEAN CORPUSCULAR HEMOGLOBIN 33.4 pg (27.0-31.0); MEAN CORPUSCULAR HGB CONC 32.2 g/dL (33.0-37.0); RBC 2.46 Mil/uL (3.80-5.20); RED CELL DISTRIBUTION WIDTH 25.4 % (11.5-14.5); WHITE BLOOD COUNT 4.9 K/uL (4.8-10.8)
[2017-10-27 08:56] LABS: HEMOGLOBIN 8.2 g/dL (12.0-16.0)
[2017-10-27] MEDS: MethylPREDNISolone 40 mg Vial IVP SCH ×2 (09:47→18:09)
[2017-10-28 05:47] LABS: HEMOGLOBIN 8.6 g/dL (12.0-16.0); MEAN CELL VOLUME 104.3 fl (81.0-99.0); MEAN CORPUSCULAR HEMOGLOBIN 33.8 pg (27.0-31.0); MEAN CORPUSCULAR HGB CONC 32.4 g/dL (33.0-37.0); RBC 2.54 Mil/uL (3.80-5.20); RED CELL DISTRIBUTION WIDTH 25.7 % (11.5-14.5); WHITE BLOOD COUNT 4.8 K/uL (4.8-10.8)
[2017-10-28 05:50] LABS: BLOOD UREA NITROGEN 26 mg/dl (7-17); CALCIUM 9.1 mg/dL (8.4-10.2); GFR NON-AFRICAN AMERICAN > 60
[2017-10-28] MEDS: Levothyroxine 75 MCG TAB PO SCH (06:33)
[2017-10-28 08:26] VITALS: RESP 20
[2017-10-28] MEDS: MethylPREDNISolone 40 mg Vial IVP SCH (08:44)
[2017-10-28 12:23] VITALS: BP 115/64; PULSE 66; TEMP 97.7; O2SAT 99
--- NOTE | 2017-10-28 13:34 | CP.PCM.PN ---
Subjective - Date & Time of Evaluation Date of Evaluation: 10/28/17 Time of Evaluation: 09:40 Objective - Vital Signs/Intake and Output Vital Signs (last 24 hours): Temp Pulse Resp BP Pulse Ox 97.7 F 66 20 115/64 99 10/28/17 12:22 10/28/17 12:22 10/28/17 12:22 10/28/17 12:22 10/28/17 12:22 - Medications Medications: Current Medications Cyanocobalamin (Vitamin B12 1000 Mcg Tab) 1,000 mcg PO DAILY [facility] Last Admin: 10/28/17 08:44 Dose: 1,000 mcg Folic Acid (Folic Acid) 1 mg PO DAILY [facility] Last Admin: 10/28/17 08:44 Dose: 1 mg Levothyroxine Sodium (Synthroid) 75 mcg PO DAILY@0630 [facility] Last Admin: 10/28/17 06:33 Dose: 75 mcg Methylprednisolone (Solu-Medrol) 40 mg IVP BID [facility] Last Admin: 10/28/17 08:44 Dose: 40 mg Montelukast Sodium (Singulair) 10 mg PO DAILY@2200 [facility] Last Admin: 10/27/17 22:22 Dose: 10 mg - Labs Labs: 10/28/17 05:24 10/28/17 05:24 Assessment and Plan (1) Autoimmune hemolytic anemia Status: Acute (2) Leukopenia Status: Acute (3) Symptomatic anemia Status: Acute
--- NOTE | 2017-10-28 14:02 | CP.PCM.PCO ---
Assessment & Plan - Assessment and Plan (Free Text) Assessment: pt. sitting up in bed, feels well, denies sob, cp, dizziness fever or chills repeat cbc hgb 8.6- s/p 2 unit prbc pt. cleared for d/c to HOme today by and cont. prednisone 20 mg po daily, protonix 40 mg po daily - E rx sent to [facility] pharmacy pt. will f/u with outpatient- f/u Bone marrow Bx results
--- NOTE | 2017-10-28 14:49 | CP.PCM.DIS ---
<Kt Suárez - Last Filed: 10/28/17 14:47> Provider - Provider Date of Admission: 10/25/17 16:11 Attending physician: Ranjeet Monaco MD Time Spent in preparation of Discharge (in minutes): 20 Diagnosis - Discharge Diagnosis (1) Autoimmune hemolytic anemia Status: Acute (2) Leukopenia Status: Acute (3) Symptomatic anemia Status: Acute Hospital Course - Lab Results Lab Results: Most Recent Lab Values WBC 4.8 K/uL (4.8-10.8) 10/28/17 05:24 RBC 2.54 Mil/uL (3.80-5.20) L 10/28/17 05:24 Hgb 8.6 g/dL (12.0-16.0) L 10/28/17 05:24 Hct 26.5 % (34.0-47.0) L 10/28/17 05:24 MCV 104.3 fl (81.0-99.0) H 10/28/17 05:24 MCH 33.8 pg (27.0-31.0) H 10/28/17 05:24 MCHC 32.4 g/dL (33.0-37.0) L 10/28/17 05:24 RDW 25.7 % (11.5-14.5) H 10/28/17 05:24 Plt Count 114 K/uL (130-400) L 10/28/17 05:24 MPV 7.5 fl (7.2-11.7) 10/26/17 04:20 Neut % (Auto) 56.5 % (50.0-75.0) 10/26/17 04:20 Lymph % (Auto) 39.6 % (20.0-40.0) 10/26/17 04:20 [place] % (Auto) 3.5 % (0.0-10.0) 10/26/17 04:20 Eos % (Auto) 0.2 % (0.0-4.0) 10/26/17 04:20 Baso % (Auto) 0.2 % (0.0-2.0) 10/26/17 04:20 Neut # (Auto) 1.6 K/uL (1.8-7.0) L 10/26/17 04:20 Lymph # (Auto) 1.1 K/uL (1.0-4.3) 10/26/17 04:20 [place] # (Auto) 0.1 K/uL (0.0-0.8) 10/26/17 04:20 Eos # (Auto) 0.0 K/uL (0.0-0.7) 10/26/17 04:20 Baso # (Auto) 0.0 K/uL (0.0-0.2) 10/26/17 04:20 Retic Count 17.5 % (0.5-1.5) H 10/26/17 04:20 Haptoglobin < 20.0 mg/dL (30.0-200.0) L 10/25/17 16:17 Sodium 142 mmol/l (132-148) 10/28/17 05:24 Potassium 4.6 MMOL/L (3.6-5.0) 10/28/17 05:24 Chloride 107 mmol/L (98-107) 10/28/17 05:24 Carbon Dioxide 21 mmol/L (22-30) L 10/28/17 05:24 Anion Gap 19 (10-20) 10/28/17 05:24 BUN 26 mg/dl (7-17) H 10/28/17 05:24 Creatinine 0.7 mg/dl (0.7-1.2) 10/28/17 05:24 Est GFR ( Amer) > 60 10/28/17 05:24 Est GFR (Non-Af Amer) > 60 10/28/17 05:24 Random Glucose 131 mg/dL (65-105) H 10/28/17 05:24 Calcium 9.1 mg/dL (8.4-10.2) 10/28/17 05:24 Phosphorus 3.8 mg/dl (2.5-4.5) 10/26/17 04:20 Magnesium 2.3 MG/DL (1.6-2.3) 10/26/17 04:20 Total Bilirubin 2.0 mg/dl (0.2-1.3) H 10/26/17 04:20 AST 31 U/L (14-36) 10/26/17 04:20 ALT 34 U/L (9-52) 10/26/17 04:20 Alkaline Phosphatase 66 U/L (38-126) 10/26/17 04:20 Lactate Dehydrogenase 953 U/L (313-618) H 10/25/17 16:17 Total Protein 7.0 G/DL (6.3-8.2) 10/26/17 04:20 Albumin 4.0 g/dL (3.5-5.0) 10/26/17 04:20 Globulin 3.0 gm/dL (2.2-3.9) 10/26/17 04:20 Albumin/Globulin Ratio 1.4 (1.0-2.1) 10/26/17 04:20 - Hospital Course Hospital Course: pt seen and examined at bedside with Dr. Monaco. 82 yo f with pmhx of autoimmune hemolytic anemia, hypothyroid, arthritis admitted for symptomatic anemia. s/p PRBC transfusion heme: Dr. Varner: to follow up OP with bx results and further management d/c home with steroids case dw Dr. Jacinda suárez md pgy2 Discharge Exam - Head Exam Head Exam: ATRAUMATIC - Eye Exam Eye Exam: EOMI - Respiratory Exam Respiratory Exam: NORMAL BREATHING PATTERN - Cardiovascular Exam Cardiovascular Exam: +S1, +S2 - Neurological Exam Neurological exam: Alert, CN II-XII Intact, Oriented x3, Reflexes Normal - Psychiatric Exam Psychiatric exam: Normal Affect, Normal Mood Discharge Plan - Discharge Medications Prescriptions: Pantoprazole Sodium [Protonix] 40 mg PO DAILY #14 ect Prednisone [Deltasone] 20 mg PO DAILY #15 tablet - Follow Up Plan Condition: GOOD Disposition: HOME/ ROUTINE Instructions: Autoimmune Hemolytic Anemia Additional Instructions: pt. cleared for discharge to Home today by and f/u with in 1 week I was present during evaluation and discussed with Dr Suárez re plans of care and mgt. Ranjeet Monaco M.D. Referrals: Ifeanyi Varner MD [Staff Provider] - Ranjeet Monaco MD [Staff Provider] - Rudi Woodson MD [Family Provider] - <Ranjeet Monaco - Last Filed: 10/28/17 15:56> Provider - Provider Date of Admission: 10/25/17 16:11 Attending physician: Ranjeet Monaco MD Diagnosis - Discharge Diagnosis (1) Autoimmune hemolytic anemia Status: Acute (2) Leukopenia Status: Acute (3) Arthropathy Status: Acute Hospital Course - Lab Results Lab Results: Most Recent Lab Values WBC 4.8 K/uL (4.8-10.8) 10/28/17 05:24 RBC 2.54 Mil/uL (3.80-5.20) L 10/28/17 05:24 Hgb 8.6 g/dL (12.0-16.0) L 10/28/17 05:24 Hct 26.5 % (34.0-47.0) L 10/28/17 05:24 MCV 104.3 fl (81.0-99.0) H 10/28/17 05:24 MCH 33.8 pg (27.0-31.0) H 10/28/17 05:24 MCHC 32.4 g/dL (33.0-37.0) L 10/28/17 05:24 RDW 25.7 % (11.5-14.5) H 10/28/17 05:24 Plt Count 114 K/uL (130-400) L 10/28/17 05:24 MPV 7.5 fl (7.2-11.7) 10/26/17 04:20 Neut % (Auto) 56.5 % (50.0-75.0) 10/26/17 04:20 Lymph % (Auto) 39.6 % (20.0-40.0) 10/26/17 04:20 [place] % (Auto) 3.5 % (0.0-10.0) 10/26/17 04:20 Eos % (Auto) 0.2 % (0.0-4.0) 10/26/17 04:20 Baso % (Auto) 0.2 % (0.0-2.0) 10/26/17 04:20 Neut # (Auto) 1.6 K/uL (1.8-7.0) L 10/26/17 04:20 Lymph # (Auto) 1.1 K/uL (1.0-4.3) 10/26/17 04:20 [place] # (Auto) 0.1 K/uL (0.0-0.8) 10/26/17 04:20 Eos # (Auto) 0.0 K/uL (0.0-0.7) 10/26/17 04:20 Baso # (Auto) 0.0 K/uL (0.0-0.2) 10/26/17 04:20 Retic Count 17.5 % (0.5-1.5) H 10/26/17 04:20 Haptoglobin < 20.0 mg/dL (30.0-200.0) L 10/25/17 16:17 Sodium 142 mmol/l (132-148) 10/28/17 05:24 Potassium 4.6 MMOL/L (3.6-5.0) 10/28/17 05:24 Chloride 107 mmol/L (98-107) 10/28/17 05:24 Carbon Dioxide 21 mmol/L (22-30) L 10/28/17 05:24 Anion Gap 19 (10-20) 10/28/17 05:24 BUN 26 mg/dl (7-17) H 10/28/17 05:24 Creatinine 0.7 mg/dl (0.7-1.2) 10/28/17 05:24 Est GFR ( Amer) > 60 10/28/17 05:24 Est GFR (Non-Af Amer) > 60 10/28/17 05:24 Random Glucose 131 mg/dL (65-105) H 10/28/17 05:24 Calcium 9.1 mg/dL (8.4-10.2) 10/28/17 05:24 Phosphorus 3.8 mg/dl (2.5-4.5) 10/26/17 04:20 Magnesium 2.3 MG/DL (1.6-2.3) 10/26/17 04:20 Total Bilirubin 2.0 mg/dl (0.2-1.3) H 10/26/17 04:20 AST 31 U/L (14-36) 10/26/17 04:20 ALT 34 U/L (9-52) 10/26/17 04:20 Alkaline Phosphatase 66 U/L (38-126) 10/26/17 04:20 Lactate Dehydrogenase 953 U/L (313-618) H 10/25/17 16:17 Total Protein 7.0 G/DL (6.3-8.2) 10/26/17 04:20 Albumin 4.0 g/dL (3.5-5.0) 10/26/17 04:20 Globulin 3.0 gm/dL (2.2-3.9) 10/26/17 04:20 Albumin/Globulin Ratio 1.4 (1.0-2.1) 10/26/17 04:20
--- NOTE | 2017-10-28 15:51 | CP.PCM.PN ---
Subjective - Date & Time of Evaluation Date of Evaluation: 10/27/17 Time of Evaluation: 11:30 - Subjective Subjective: Patient is doing better Received two units of PRBC last night. Tolerated bone marrow biopsy. Has no headaches No fever No chest pain or SOB. Objective - Vital Signs/Intake and Output Vital Signs (last 24 hours): Temp Pulse Resp BP Pulse Ox 97.7 F 66 20 115/64 99 10/28/17 12:22 10/28/17 12:22 10/28/17 12:22 10/28/17 12:22 10/28/17 12:22 - Medications Medications: Current Medications Cyanocobalamin (Vitamin B12 1000 Mcg Tab) 1,000 mcg PO DAILY [facility] Last Admin: 10/28/17 08:44 Dose: 1,000 mcg Folic Acid (Folic Acid) 1 mg PO DAILY [facility] Last Admin: 10/28/17 08:44 Dose: 1 mg Levothyroxine Sodium (Synthroid) 75 mcg PO DAILY@0630 [facility] Last Admin: 10/28/17 06:33 Dose: 75 mcg Methylprednisolone (Solu-Medrol) 40 mg IVP BID [facility] Last Admin: 10/28/17 08:44 Dose: 40 mg Montelukast Sodium (Singulair) 10 mg PO DAILY@2200 [facility] Last Admin: 10/27/17 22:22 Dose: 10 mg - Labs Labs: 10/28/17 05:24 10/28/17 05:24 - Head Exam Head Exam: NORMAL INSPECTION - Eye Exam Eye Exam: Normal appearance - ENT Exam ENT Exam: Mucous Membranes Moist - GI/Abdominal Exam GI & Abdominal Exam: Normal Bowel Sounds - Neurological Exam Neurological Exam: Awake, Oriented x3 - Psychiatric Exam Psychiatric exam: Normal Mood Assessment and Plan (1) Autoimmune hemolytic anemia Status: Acute (2) Leukopenia Status: Acute (3) Arthropathy Status: Acute - Assessment and Plan (Free Text) Plan: Cont meds Cont tx Cont monitor cbc discussed with Dr lupe flores po prednisone. repeat cbc in am if improved will send to home.
--- NOTE | 2017-10-28 22:41 | CP.PCM.PN ---
Subjective - Date & Time of Evaluation Date of Evaluation: 10/27/17 Time of Evaluation: 12:00 - Subjective Subjective: Feeling better s/p PRBC transfusion Objective - Vital Signs/Intake and Output Vital Signs (last 24 hours): Temp Pulse Resp BP Pulse Ox 97.7 F 66 20 115/64 99 10/28/17 12:22 10/28/17 12:22 10/28/17 12:22 10/28/17 12:22 10/28/17 12:22 - Labs Labs: 10/28/17 05:24 10/28/17 05:24 - Head Exam Head Exam: ATRAUMATIC - Eye Exam Eye Exam: Normal appearance - ENT Exam ENT Exam: Mucous Membranes Dry - Respiratory Exam Respiratory Exam: NORMAL BREATHING PATTERN - Cardiovascular Exam Cardiovascular Exam: +S1, +S2 Assessment and Plan (1) Autoimmune hemolytic anemia Assessment & Plan: improving with steroids s/p PRBC transfusion if H/H stable, can D/C in AM on prednisone 20mg daily outpatient f/u Status: Acute (2) Leukopenia Assessment & Plan: f/u bone marrow biopsy Status: Acute
--- NOTE | 2017-10-28 22:42 | CP.PCM.PN ---
Subjective - Date & Time of Evaluation Date of Evaluation: 10/28/17 Time of Evaluation: 11:00 - Subjective Subjective: Feeling better Objective - Vital Signs/Intake and Output Vital Signs (last 24 hours): Temp Pulse Resp BP Pulse Ox 97.7 F 66 20 115/64 99 10/28/17 12:22 10/28/17 12:22 10/28/17 12:22 10/28/17 12:22 10/28/17 12:22 - Labs Labs: 10/28/17 05:24 10/28/17 05:24 - Head Exam Head Exam: ATRAUMATIC - Eye Exam Eye Exam: Normal appearance - ENT Exam ENT Exam: Mucous Membranes Dry - Respiratory Exam Respiratory Exam: NORMAL BREATHING PATTERN - Cardiovascular Exam Cardiovascular Exam: +S1, +S2 - GI/Abdominal Exam GI & Abdominal Exam: Normal Bowel Sounds Assessment and Plan (1) Autoimmune hemolytic anemia Assessment & Plan: H/H improved s/p PRBC transfusion cleared for D/C from hem/onc standpoint outpatient prednisone 20mg daily with PPI outpatient f/u of bone marrow Status: Acute (2) Leukopenia Status: Acute
== END 2017-10-28 15:35 | disposition home or self-care (01) | DRG 810 ==
LOC: H.ER 13:48 → H.ERHOLD 16:11 → H.TEL 21:19
PROVIDERS: ADMIT Family Medicine; ATTEND Family Medicine
PROC: 3E0234Z Introduction of Serum, Toxoid and Vaccine into Muscle, Percutaneous Approach (ICD-10-PCS; principal; 2017-10-26)
PROC: 07DR3ZX Extraction of Iliac Bone Marrow, Percutaneous Approach, Diagnostic (ICD-10-PCS; 2017-10-26)
DX: D59.1 Other autoimmune hemolytic anemias (principal); E03.9 Hypothyroidism, unspecified; Z96.653 Presence of artificial knee joint, bilateral; Z23 Encounter for immunization; M19.90 Unspecified osteoarthritis, unspecified site; J45.909 Unspecified asthma, uncomplicated; J44.9 Chronic obstructive pulmonary disease, unspecified; D72.819 Decreased white blood cell count, unspecified